=== PATIENT | female | born 1955 | race Caucasian/White ===

== ENCOUNTER → 2020-02-09 10:31 | Outpatient (CLI) | payer OTHER, MEDICAID, SELFPAY ==
[2020-02-09 11:42] LABS: Hematocrit 38.5 % (36-46); Hemoglobin 12.6 g/dL (12.0-16.0); Mean Corpuscular HGB Conc 32.7 % (30-36); Mean Corpuscular Hemoglobin 28.6 PG (26-34); Mean Corpuscular Volume 87.5 fL (80-100); Platelet Count 225 X10^3/uL (150-400); Red Cell Distribution Width 12.7 % (11.6-14.8); White Blood Cell Count 3.8 X10^3/uL (4.5-11.0)
[2020-02-09 12:05] LABS: Alanine Aminotransferase 12 IU/L (<35); Albumin 3.8 g/dL (3.5-5.0); Albumin Globulin Ratio 1.2 (1.0-2.8); Alkaline Phosphatase 56 U/L (38-126); Aspartate Aminotransferase 26 IU/L (14-36); BUN Creatinine Ratio 14.8 (6-22); Bilirubin Total 0.8 mg/dL (0.2-1.3); Blood Urea Nitrogen 13 mg/dL (7-17); Calcium 8.9 mg/dL (8.4-10.2); Carbon Dioxide 33 mmol/L (22-32); Chloride 104 mmol/L (98-107); Cholesterol 264 mg/dL (140-199); Estimated Glomerular Filt Rate > 60.0 mL/min (>60); Globulin 3.1 g/dL (1.7-4.1); Glucose 89 mg/dL (80-110); HDL Cholesterol 62 mg/dL (40-60); HEMOLYSIS < 15 (0-50); LDL Cholesterol Calculated 179 mg/dL (<100); Potassium 4.1 mmol/L (3.4-5.1); Sodium 138 mmol/L (137-145); Total Protein 6.9 g/dL (6.3-8.2); Triglycerides 113 mg/dL (35-150)
== END ==
PROVIDERS: PCP Nurse Practitioner Family; Referring Provider Nurse Practitioner Family; Visit Provider Nurse Practitioner Family
DX: Z00.00 Encounter for general adult medical examination without abnormal findings (principal); Z13.6 Encounter for screening for cardiovascular disorders
CPT/HCPCS: 36415; 80053; 80061; 85027

== ENCOUNTER → 2020-06-14 08:44 | Outpatient (CLI) | payer OTHER, MEDICAID, SELFPAY ==
[2020-06-14 10:45] LABS: Cholesterol 200 mg/dL (140-199); HDL Cholesterol 53 mg/dL (40-60); LDL Cholesterol Calculated 126 mg/dL (<100); Triglycerides 104 mg/dL (35-150)
== END ==
PROVIDERS: PCP Nurse Practitioner Family; Referring Provider Nurse Practitioner Family; Visit Provider Nurse Practitioner Family
DX: E78.2 Mixed hyperlipidemia (principal)
CPT/HCPCS: 36415; 80061

== ENCOUNTER → 2020-06-25 12:27 | Outpatient (CLI) | payer OTHER, MEDICAID, SELFPAY ==
[2020-06-25] MEDS: COVID-19 VACC #1, MRNA(MOD) 100 MCG/0.5 ML VIAL IM (12:35)
== END ==
PROVIDERS: PCP Nurse Practitioner Family; Visit Provider Internal Medicine
DX: Z23 Encounter for immunization (principal)
CPT/HCPCS: 0011A; 91301

== ENCOUNTER → 2020-07-23 10:38 | Outpatient (CLI) | payer OTHER, MEDICAID, SELFPAY ==
[2020-07-23] MEDS: COVID-19 VACC #2, MRNA(MOD) 100 MCG/0.5 ML VIAL IM (10:55)
== END ==
PROVIDERS: PCP Nurse Practitioner Family; Visit Provider Internal Medicine
DX: Z23 Encounter for immunization (principal)
CPT/HCPCS: 0012A; 91301

== ENCOUNTER → 2020-09-18 13:22 | Outpatient (CLI) | payer OTHER, MEDICAID, SELFPAY ==
--- NOTE | 2020-09-18 13:23 | DI.MG.S_ITS ---
BILATERAL DIGITAL SCREENING MAMMOGRAM 3D/2D WITH CAD: 09/18/2020 CLINICAL: Routine screening. Family history of breast cancer. Comparison is made to exams dated: 09/03/2015 mammogram, 09/08/2015 mammogram - [facility], 03/21/2012 mammogram, and 02/23/2010 mammogram - [facility]. The tissue of both breasts is extremely dense, which lowers the sensitivity of mammography. Current study was also evaluated with a Computer Aided Detection (CAD) system. No significant masses, calcifications, or other findings are seen in either breast. There has been no significant interval change. IMPRESSION: NEGATIVE There is no mammographic evidence of malignancy. A 1 year screening mammogram is recommended. This exam was interpreted at Station ID: [id number]. NOTE: For mammograms, a report in lay terms will be sent to the patient. Approximately 15% of breast malignancies will not be visualized mammographically. In the management of a palpable breast mass, a negative mammogram must not discourage biopsy of a clinically suspicious lesion. Electronically Signed By: Santy Brown M.D., jr/rohit:09/20/2020 08:32:34 copy to: NEFTALY JOHN letter sent: Normal Exam ACR BI-RADS Category 1: Negative 3341F
== END ==
PROVIDERS: PCP Nurse Practitioner Family; Referring Provider Nurse Practitioner Family; Visit Provider Nurse Practitioner Family
DX: Z12.31 Encounter for screening mammogram for malignant neoplasm of breast (principal); Z80.3 Family history of malignant neoplasm of breast
CPT/HCPCS: 77063; 77067

== ENCOUNTER → 2020-10-13 08:30 | Outpatient (CLI) | payer OTHER, MEDICAID, SELFPAY ==
[2020-10-13 09:43] LABS: COVID19 -Nasal RAPID Negative (Negative)
== END ==
PROVIDERS: PCP Nurse Practitioner Family; Visit Provider Surgery
DX: Z20.822 Contact with and (suspected) exposure to COVID-19 (principal)
CPT/HCPCS: 87635; C9803

== ENCOUNTER 2020-10-14 11:59 | Day surgery (SDC) | payer OTHER, MEDICAID, SELFPAY ==
[2020-10-14 12:31] VITALS: BP 153/85; PULSE 67; RESP 16; TEMP 36.5; O2SAT 99; BMI 25.8
[2020-10-14] MEDS: LACTATED RINGERS 1,000 ML 200 ML IV (12:48)
--- NOTE | 2020-10-14 12:58 | PM.HP.1 ---
History of Present Illness History of Present Illness Date Patient Seen: 10/14/20 Time Patient Seen: 12:58 Chief complaint: SCREENING COLONOSCOPY Narrative: The patient presents for colorectal sreening. Three prior colonoscopies, most recently 10 years ago and normal. No personal or family history of colon cancer. On further history denies any recent gastrointestinal symptoms. No nausea, vomiting, abdominal pain, loss of appetite, unexplained weight loss, change in bowel habits, diarrhea, constipation, melena, hematochezia, or bright red blood per rectum. Patient History Medical History Anemia (~2002) Asthma Chicken pox Fibroids (~2002) Heavy menstrual period (~2002) Knee pain (~2018) Measles Mixed hyperlipidemia (01/2020) Mumps UTI (urinary tract infection) Vision disorder Surgical History Anesthesia Status post hysterectomy (~2003) Family & Social History Family History Brother Age: 61 Diabetes mellitus Hypertension Mental health problem Morbid obesity Father Diabetes mellitus Heart disease Hypertension High cholesterol Mother Cancer Hypertension Hyperlipidemia Grandfather Cancer Heavy smoker Grandfather Stroke Grandmother No problems noted. Grandmother No problems noted. Social History: household members none Tobacco & Substance use: Smoking Status Never smoker alcohol intake current alcohol intake frequency a few times a month Substance Use Type does not use Meds Home Medications and Allergies Home Medications Medication Instructions Recorded Confirmed Type cholecalciferol (vitamin D3) 125 125 mcg PO DAILY 06/16/20 10/14/20 History mcg (5,000 unit) capsule krill oil 500 mg capsule 500 mg PO DAILY 06/16/20 10/14/20 History mycommunity 2 cap PO DAILY 06/16/20 10/14/20 History plant stanol albina 450 mg capsule 900 mg PO BID 06/16/20 10/14/20 History (Cholest Off Plus) Allergies Allergy/AdvReac Type Severity Reaction Status Date / Time bee venom protein (honey bee) AdvReac Intermediate SWELLING Verified 10/14/20 12:21 Review of Systems Review of Systems ROS: Yes All systems reviewed with the patient and are negative except as otherwise documented Exam Vital Signs (past 8 hours): - 10/14/20 12:31 Temperature 97.7 F Pulse Rate 67 Respiratory Rate 16 Blood Pressure 153/85 H Pulse Oximetry 99 Oxygen Delivery Method Room Air Oxygen Flow Rate 0 Narrative Exam Narrative: GENERAL-well developed adult female, no acute distress HEENT-no scleral icterus, hearing intact NECK-no JVD, trachea midline CVS- regular rate, no peripheral edema RESP-unlabored respiratory effort, no audible wheezing GI-soft, nontender nondistended MSK-no cyanosis or clubbing, extremities without deformity SKIN-warm, dry NEURO-alert and oriented, no focal deficits PYSCH-Appropriate mood and affect Assessment & Plan Assessment & Plan narrative: The patient requires colorectal screening and colonoscopy is recommended. Technical details were discussed. Risks, benefits, alternatives explained. Risks including but not limited to myocardial infarction, aspiration, bleeding, pain, missed lesion, incomplete examination, need for further radiographic studies, colonic perforation, and need for major abdominal surgery were discussed. All questions were answered to their satisfaction, and they are in agreement with this plan.
[2020-10-14] MEDS: fentaNYL 250 MCG/5 ML INJ IV (13:15)
[2020-10-14] MEDS: MIDAZOLAM 5 MG/5 ML VIAL IV (13:17)
--- NOTE | 2020-10-14 13:28 | PM.OP.ENDO ---
Operative Date/Time/Diagnoses Date of procedure: 10/14/20 Time of procedure: 13:28 Pre-op diagnosis: Screening colonoscopy Post-op diagnosis: same Procedure & Clinicians Study performed: Colonoscopy Same procedure as scheduled: Yes Indications: Screening Surgeon: Rohit Monroy Procedure Notes Procedure in detail: Medications: Conscious sedation using 8mg IV midazolam and 250mcg IV of fentanyl The history and physical was performed/updated and the patient is ASA class is 2. The procedure was discussed in detail with the patient. Potential risks complications including infection, bleeding, missed diagnosis, perforation, need for surgery, and were explained. Their questions were answered and informed consent was obtained. Patient was brought to the procedure room and placed standard monitoring equipment. The patient's vital signs were monitored continuously throughout the entire procedure. Prior to starting time-out was performed. The patient was placed in the left lateral recumbent position. Procedural sedation was administered. Examination began with a thorough inspection of the perianal area there was no evidence of fissures, fistulae, external hemorrhoids or cutaneous malignancy. The colonoscopy scope was then placed into the anal canal and was advanced to the cecum, which was identified by the ileocecal valve, the appendiceal orifice and the confluence of the taenia. The scope was then slowly withdrawn examining colon thoroughly in all directions, irrigating it of any residual stool. FINDINGS 1. Normal healthy colon 2. No masses or polyps 3. Sigmoid diverticulosis 4. Grade 1 internal hemorrhoids The patient tolerated the procedure well. They will be discharged once criteria are met. The prep was of good/excellent quality. The withdrawl time was 6 minutes. The sedation time was 23 minutes. Post-procedure Recommendations: Colonscopy in 10 years Disposition: same day surgery
[2020-10-14 13:37] VITALS: BP 113/68; PULSE 61; RESP 18; O2SAT 94
[2020-10-14 13:42] VITALS: BP 115/73; PULSE 60; RESP 16; TEMP 36.9
[2020-10-14 13:51] VITALS: BP 114/68; PULSE 70; RESP 16; TEMP 36.8; O2SAT 98
== END 2020-10-14 14:02 | disposition home or self-care (01) ==
PROVIDERS: PCP Nurse Practitioner Family; Referring Provider Surgery; Visit Provider Surgery
PROC: 0DJD8ZZ Inspection of Lower Intestinal Tract, Via Natural or Artificial Opening Endoscopic (ICD-10-PCS; CPT 45378; principal; 2020-10-14 13:00)
DX: Z12.11 Encounter for screening for malignant neoplasm of colon (principal); K57.30 Diverticulosis of large intestine without perforation or abscess without bleeding; K64.0 First degree hemorrhoids
CPT/HCPCS: 45378; 99152; J2250; J3010

== ENCOUNTER → 2021-09-21 10:54 | Outpatient (CLI) | payer MEDICARE, OTHER, SELFPAY ==
--- NOTE | 2021-09-21 | DI.MG.S_ITS ---
BILATERAL DIGITAL SCREENING MAMMOGRAM 3D/2D WITH CAD: 09/21/2021 CLINICAL: Routine screening. Family history of breast cancer. Comparison is made to exams dated: 09/18/2020 mammogram, 09/08/2015 mammogram, 09/03/2015 mammogram - [facility], and 03/21/2012 mammogram - [facility]. The tissue of both breasts is extremely dense, which lowers the sensitivity of mammography. Current study was also evaluated with a Computer Aided Detection (CAD) system. No significant masses, calcifications, or other findings are seen in either breast. There has been no significant interval change. IMPRESSION: NEGATIVE There is no mammographic evidence of malignancy. A 1 year screening mammogram is recommended. This exam was interpreted at Station ID: [id number]. NOTE: For mammograms, a report in lay terms will be sent to the patient. Approximately 15% of breast malignancies will not be visualized mammographically. In the management of a palpable breast mass, a negative mammogram must not discourage biopsy of a clinically suspicious lesion. Electronically Signed By: Andrade Rush acr/penrad:09/21/2021 11:19:41 copy to: NEFTALY JOHN letter sent: Normal Exam ACR BI-RADS Category 1: Negative 3341F
== END ==
PROVIDERS: PCP Nurse Practitioner Family; Referring Provider Nurse Practitioner Family; Visit Provider Nurse Practitioner Family
DX: Z12.31 Encounter for screening mammogram for malignant neoplasm of breast (principal); Z80.3 Family history of malignant neoplasm of breast
CPT/HCPCS: 77063; 77067

== ENCOUNTER → 2022-05-03 15:22 | Outpatient (CLI) | payer MEDICARE, OTHER, SELFPAY ==
[2022-05-03 15:47] LABS: Hematocrit 33.1 % (36-46); Hemoglobin 10.6 g/dL (12.0-16.0); Mean Corpuscular HGB Conc 31.9 % (30-36); Mean Corpuscular Hemoglobin 26.5 PG (26-34); Mean Corpuscular Volume 82.9 fL (80-100); Platelet Count 231 X10^3/uL (150-400)
[2022-05-03 16:27] LABS: Alanine Aminotransferase 20 IU/L (<35); Albumin 3.9 g/dL (3.5-5.0); Albumin Globulin Ratio 1.3 (1.0-2.8); Alkaline Phosphatase 56 U/L (38-126); Aspartate Aminotransferase 35 IU/L (14-36); BUN Creatinine Ratio 20.5 (6-22); Bilirubin Total 0.6 mg/dL (0.2-1.3); Blood Urea Nitrogen 17 mg/dL (7-17); Calcium 8.6 mg/dL (8.4-10.2); Carbon Dioxide 29 mmol/L (22-32); Chloride 104 mmol/L (98-107); Estimated Glomerular Filt Rate > 60 mL/min (>60); Globulin 2.9 g/dL (1.7-4.1); Glucose 116 mg/dL (80-110); HEMOLYSIS < 15 (0-50); Magnesium 2.1 mg/dL (1.6-2.3); Potassium 3.9 mmol/L (3.4-5.1); Sodium 142 mmol/L (137-145); Total Protein 6.8 g/dL (6.3-8.2)
[2022-05-03 16:53] LABS: TSH w/ Reflex to FT4 1.34 uIU/mL (0.47-4.68)
== END ==
PROVIDERS: PCP Nurse Practitioner Family; Referring Provider Nurse Practitioner Family; Visit Provider Nurse Practitioner Family
DX: R07.9 Chest pain, unspecified (principal); D64.9 Anemia, unspecified; M62.81 Muscle weakness (generalized); R03.0 Elevated blood-pressure reading, without diagnosis of hypertension; Z13.1 Encounter for screening for diabetes mellitus
CPT/HCPCS: 36415; 80053; 83735; 84443; 85027

== ENCOUNTER → 2022-05-08 16:53 | Outpatient (CLI) | payer MEDICARE, OTHER, SELFPAY ==
[2022-05-08 17:38] LABS: Hemoglobin A1C% w Est Avg Glu 5.8 % (4.0-6.0)
[2022-05-08 17:56] LABS: HEMOLYSIS 16 (0-50); Iron 30 ug/dL (37-170)
[2022-05-08 18:01] LABS: Cholesterol 231 mg/dL (140-199); HDL Cholesterol 71 mg/dL (40-60); LDL Cholesterol Calculated 134 mg/dL (<100); Triglycerides 130 mg/dL (35-150)
[2022-05-08 18:07] LABS: Percent Iron Saturation 7 % (15-50); Total Iron Binding Capacity 423 ug/dL (265-497); Transferrin 312 mg/dL (206-381)
[2022-05-08 18:33] LABS: Ferritin 7 ng/mL (11-264)
== END ==
PROVIDERS: PCP Family Medicine; Referring Provider Family Medicine; Visit Provider Family Medicine
DX: R03.0 Elevated blood-pressure reading, without diagnosis of hypertension (principal); D64.9 Anemia, unspecified; E78.2 Mixed hyperlipidemia; Z13.1 Encounter for screening for diabetes mellitus
CPT/HCPCS: 36415; 80061; 82728; 83036; 83540; 83550

== ENCOUNTER → 2022-05-29 13:47 | Outpatient (CLI) | payer MEDICARE, OTHER, SELFPAY ==
--- NOTE | 2022-05-29 13:48 | DI.ECHO.S_ITS ---
[facility] [address] [place]. [address] [facility]---------+ [facility] +---------+ : : [id number] : : : : [place], [place] : : : : [id number] : : : : Phone: [phone]+ Echocardiogram Report + + :Name: KYLAH LOBO Study Date: 05/29/2022 Height: 65 in : :[facility] ReadingLocation: Weight: 175 lb : : Gender: Female BSA: 1.9 m2 : :: 1955 Age: 67 yrs BP: 156/86 mmHg: :Reason For Study: Chest Pain : :Ordering Physician: JENSEN, : :DARIEN Performed By: Magdalene Ryan : :Referring: DARIEN STYLES : + + Interpretation Summary Mild concentric left ventricular hypertrophy with ejection fraction 60-65%. Diastolic parameters suggest a relaxation abnormality of the left ventricle, consistent with probable normal filling pressures. Moderately dilated left atrium. No valvular abnormality. Procedure: A two-dimensional transthoracic echocardiogram with color flow and Doppler was performed. The study quality was technically good. There is no prior echocardiogram noted for this patient. The patient was in sinus rhythm with heart rates between 70-78 bpm during the exam. Left Ventricle: The left ventricle is normal in size. There is mild concentric left ventricular hypertrophy. The ejection fraction is estimated to be 60-65%. There are no focal wall motion abnormalities. Diastolic parameters suggest a relaxation abnormality of the left ventricle, consistent with probable normal filling pressures. Right Ventricle: The right ventricle is normal in size, thickness and function. Atria: The left atrium is moderately dilated. Right atrial size is normal. There is no Doppler evidence for an interatrial shunt. Mitral Valve: The mitral valve is normal in structure but abnormal in function. There is trace mitral regurgitation. Aortic Valve: The aortic valve is normal in structure and function. There is trace aortic regurgitation. Tricuspid Valve: The tricuspid valve is normal in structure and function. There is a trace or physiologic amount of tricuspid regurgitation. The right ventricular systolic pressure is estimated to be at least 18.5 mmHg based on an estimated right atrial pressure of 3 mm Hg. Pulmonic Valve: The pulmonic valve leaflets are thin and pliable; valve motion is normal. There is no pulmonic valvular regurgitation. Great Vessels: The aortic root is normal size. The ascending aorta is normal in size. The pulmonary is not well visualized. The IVC is of normal diameter and collapses greater than 50% with a sniff. This suggests a low right atrial pressure of 3 mm Hg. Pericardium/ Pleura There is a trivial pericardial effusion noted. There is no pleural effusion. MMode/2D Measurements & Calculations LVIDd: 4.6 cm LVOT diam: 2.1 cm LVIDs: 2.9 cm Ao root diam: 3.3 cm FS: 36.3 % asc Aorta Diam: 3.4 cm EPSS: 0.34 cm IVSd: 1.0 cm LVPWd: 1.2 cm LV suarez. diameter/BSA (cm/m^2): 2.5 LV sys. diameter/BSA (cm/m^2): 1.6 LA A2 area: 21.5 cm2 RA long axis: 5.1 cm LA A4 area: 20.9 cm2 RA area: 17.7 cm2 LA length (vol): 5.0 cm RA vol: 52.2 ml LA vol: 76.8 ml RA : 27.9 ml/m2 LA vol index: 41.1 ml/m2 IVC diam: 1.8 cm RVD1 (basal): 3.8 cm TAPSE: 2.2 cm Doppler Measurements & Calculations Ao V2 max: 134.5 cm/sec LVOT Max Geronimo: 94.3 cm/sec Ao V2 mean: 97.1 cm/sec LV V1 max P.6 mmHg Ao max P.2 mmHg LV V1 VTI: 20.9 cm Ao mean P.2 mmHg GRETCHEN(I,D): 2.8 cm2 Ao V2 VTI: 26.0 cm GRETCHEN(V,D): 2.4 cm2 sev ratio: 0.80 GRETCHEN indexed to BSA (cm^2/m^2): 1.5 MV E max geronimo: 44.2 cm/sec TR max geronimo: 183.8 cm/sec MV A max geronimo: 76.7 cm/sec TR max P.5 mmHg MV E/A: 0.58 PA V2 max: 69.1 cm/sec Med Peak E' Geronimo: 4.1 cm/sec PA V2 mean: 52.7 cm/sec E/E' med: 10.8 PA mean P.2 mmHg Lat Peak E' Geronimo: 3.2 cm/sec E/E' lat: 13.7 E/e' average: 12.2 MV dec time: 0.30 sec MVA(VTI): 3.8 cm2 MV V2 mean: 49.2 cm/sec SV(LVOT): 72.2 ml MV mean P.2 mmHg MV V2 VTI: 18.9 cm Electronically signed by: Hanna Moreland on Reading Physician:05/29/2022 04:21 PM
== END ==
PROVIDERS: PCP Family Medicine; Referring Provider Family Medicine; Visit Provider Family Medicine
DX: R07.9 Chest pain, unspecified (principal)
CPT/HCPCS: 93306

== ENCOUNTER → 2022-06-06 07:44 | Outpatient (CLI) | payer MEDICARE, OTHER, SELFPAY ==
--- NOTE | 2022-06-12 09:42 | DI.NM.S_ITS ---
DATE OF SERVICE: PROCEDURE: Exercise stress test. INDICATIONS: Chest pain with underlying diabetes mellitus, hypertension. CARDIAC STRESS: Patient underwent exercise stress test under the supervision of an attending staff. The patient walked on Narendra protocol for 9 minutes and achieved 112% of target heart rate. Maximum heart rate was 172 beats per minute. Baseline blood pressure 140/88 mmHg. Peak blood pressure 190/102 mmHg. Achieved 10.1 METS of workload and RUSSELL -42%. Baseline rhythm was sinus with inferolateral T-wave inversion. During stress, no convincing ischemic changes seen. No obvious AFib or ventricular tachycardia. At peak exercise, the patient has short run of atrial tachycardia. [place] fatigued. No chest pain or ischemic symptoms. No claudication. CONCLUSION: Exercise stress test is negative for inducible ischemia. Hypertensive blood pressure response. Peak blood pressure 190/102 mmHg. Good exercise tolerance. Functional aerobic impairment -42% and 10.1 metabolic equivalents of workload. Brief run of atrial tachycardia at peak exercise. Overall, low-risk exercise stress test. Estella Rodriguez - JJ/arlette/constantine doc#: [id number]/job#: [id number] dd: 06/06/2022 17:26:00 dt: 06/06/2022 23:51:00 DICTATING /COPIES TO: Noman Fox MD COPIES MNE: NITZA;
== END ==
PROVIDERS: PCP Family Medicine; Referring Provider Family Medicine; Visit Provider Family Medicine
DX: R07.9 Chest pain, unspecified (principal); E11.9 Type 2 diabetes mellitus without complications; I10 Essential (primary) hypertension
CPT/HCPCS: 93017

== ENCOUNTER → 2022-10-05 10:58 | Outpatient (CLI) | payer MEDICARE, OTHER, SELFPAY ==
--- NOTE | 2022-10-05 11:00 | DI.MG.S_ITS ---
BILATERAL DIGITAL SCREENING MAMMOGRAM 3D/2D WITH CAD: 10/05/2022 CLINICAL: Routine screening. Family history of breast cancer. Comparison is made to exams dated: 09/21/2021 mammogram, 09/18/2020 mammogram, and 09/03/2015 mammogram - [facility]. Both breasts are extremely dense, which lowers the sensitivity of mammography (category d />75% glandular tissue). Current study was also evaluated with a Computer Aided Detection (CAD) system. No significant masses, calcifications, or other findings are seen in either breast. There has been no significant interval change. IMPRESSION: NEGATIVE There is no mammographic evidence of malignancy. A 1 year screening mammogram is recommended. Based on the Tyrer Cuzick model (a risk assessment model) the patient's lifetime risk is 17.9% and her 10 year risk is 9.3%. According to the ACR, ACS, and NCCN guidelines, an annual breast MRI exam along with mammogram is recommended if the patient's lifetime risk is 20% or greater. This exam was interpreted at Station ID: [id number]. NOTE: For mammograms, a report in lay terms will be sent to the patient. Approximately 15% of breast malignancies will not be visualized mammographically. In the management of a palpable breast mass, a negative mammogram must not discourage biopsy of a clinically suspicious lesion. Electronically Signed By: Andrade buchanan/rohit:10/05/2022 14:32:18 copy to: NEFTALY JOHN letter sent: Normal Exam ACR BI-RADS Category 1: Negative 3341F
== END ==
PROVIDERS: PCP Family Medicine; Referring Provider Family Medicine; Visit Provider Family Medicine
DX: Z12.31 Encounter for screening mammogram for malignant neoplasm of breast (principal); Z80.3 Family history of malignant neoplasm of breast
CPT/HCPCS: 77063; 77067

== ENCOUNTER → 2022-12-21 09:09 | Outpatient (CLI) | payer MEDICARE, OTHER, SELFPAY ==
[2022-12-21 09:48] LABS: BUN Creatinine Ratio 18.9 (6-22); Blood Urea Nitrogen 14 mg/dL (7-17); Calcium 8.9 mg/dL (8.4-10.2); Carbon Dioxide 27 mmol/L (22-32); Chloride 103 mmol/L (98-107); Estimated Glomerular Filt Rate > 60 mL/min (>60); Glucose 89 mg/dL (80-110); HEMOLYSIS < 15 (0-50); Potassium 3.9 mmol/L (3.4-5.1); Sodium 136 mmol/L (137-145)
[2022-12-21 09:50] LABS: Add Manual Diff / Slide Review NO; Basophils Absolute Auto 0 /uL (0-100); Eosinophils Absolute Auto 100 /uL (0-450); Eosinophils Percent Auto 4.4 % (2-4); Hematocrit 37.5 % (36-46); Hemoglobin 12.6 g/dL (12.0-16.0); Lymphocytes Absolute Auto 1100 /uL (1100-4500); Lymphocytes Percent Auto 38.6 % (25-40); Mean Corpuscular HGB Conc 33.7 % (30-36); Mean Corpuscular Hemoglobin 29.2 PG (26-34); Mean Corpuscular Volume 86.6 fL (80-100); Monocytes Absolute Auto 400 /uL (0-900); Monocytes Percent Auto 12.5 % (3-14); Neutrophils Absolute Auto 1200 /uL (1500-7000); Neutrophils Percent Auto 43.5 % (50-75); Platelet Count 185 X10^3/uL (150-400); Red Blood Cell Count 4.33 X10^6/uL (4.0-5.2); White Blood Cell Count 2.9 X10^3/uL (4.5-11.0)
[2022-12-21 09:52] LABS: Hemoglobin A1C% w Est Avg Glu 5.3 % (4.0-6.0)
[2022-12-21 10:24] LABS: Ferritin 35 ng/mL (11-264)
== END ==
PROVIDERS: PCP Family Medicine; Referring Provider Family Medicine; Visit Provider Family Medicine
DX: D64.9 Anemia, unspecified (principal); R73.01 Impaired fasting glucose; I10 Essential (primary) hypertension
CPT/HCPCS: 36415; 80048; 82728; 83036; 85025

== ENCOUNTER → 2023-04-26 12:36 | Outpatient (CLI) | payer MEDICARE, OTHER, SELFPAY ==
[2023-04-26 13:22] LABS: Cholesterol 220 mg/dL (140-199); HDL Cholesterol 51 mg/dL (40-60); LDL Cholesterol Calculated 150 mg/dL (<100); Triglycerides 94 mg/dL (35-150)
== END ==
PROVIDERS: PCP Family Medicine; Referring Provider Family Medicine; Visit Provider Family Medicine
DX: E78.2 Mixed hyperlipidemia (principal); R79.0 Abnormal level of blood mineral
CPT/HCPCS: 36415; 80061

== ENCOUNTER 2023-09-08 11:27 | Emergency (ER) | payer MEDICARE, OTHER, SELFPAY ==
[2023-09-08] VITALS (12 sets, daily range): BP systolic 147–162; BP diastolic 73–90; PULSE 59–82; RESP 13–26; O2SAT 96–99; BMI 29.9
--- NOTE | 2023-09-08 11:48 | ED.GENADULT ---
HPI - General Adult <Eric Burgess MD - Last Filed: 09/10/23 07:17> General Chief complaint: Hypertension Stated complaint: high bp Time Seen by Provider: 09/08/23 11:36 Source: patient Mode of arrival: Ambulatory History of Present Illness HPI narrative: Patient brought self here from home. Complains of elevated blood pressure dizziness/vision changes. Patient seen by primary care 3 months ago for wellness check. She has been on losartan 25 mg daily for over a year. She has on a statin medication as well.. Patient has been doing well with her health. She walks about 4 miles a day. No exertional intolerance. No dyspnea. She went to bed last night without any complaints. She takes her blood pressure about once a week. Usually systolic is 120 or it might be 130. This past Sunday the systolic was 120. This morning when she awoke she went and walked her dog as usual and had no cardiovascular neuro complaints. No chest pain no dyspnea no palpitations no headache no dizziness no vision changes. When she returned home she did have some dizziness, when she looked across the room it felt like she was in a cruise ship looking out a window in the environment was shifting. This lasted less than a minute she states. That has resolved. She took her blood pressure in the systolic was 170. This was at 10:00 a.m.. It is now 12:00 p.m.. Triage blood pressure 160/90. Blow or notes from primary care back in May of this year with Dr. Jules, pcp. Today she denies any chest pain palpitations headache dyspnea back pain or abdominal pain. No numbness tingling or weakness. Patient did not test if it was 1 eye or both eyes that was causing visual disturbance Echocardiogram report below from May 2023 Subjective: Patient is here for her annual wellness visit. She feels she is at her normal level of health. She exercises regularly. She does not smoke. No significant alcohol use. She is up-to-date on her immunizations. She has had hysterectomy and no longer requires Pap smears. Colonoscopies up-to-date. So as her DEXA scan. Her end of life planning, advanced care planning is completed with her family. On a separate issue during this visit: Patient with a history of hypertension, iron-deficiency anemia, hyperlipidemia. Her blood pressure at home is well-controlled. She walks 4 miles a day without difficulty. No decrease in exercise tolerance. In the past she has taken rfeg-loy-erazpjj cholesterol medications but recently has not been taking those. She also we would like to stop her iron. [address] [address] Echocardiography Report Addendum Patient: Kylah Lobo MR#: [id number] : 1955 Acct:[id number] Age/Sex: 67 / F Date of Service: 05/29/22 Loc: ECHO Accession Number: [id number] Procedure: EC echo doppler complete Ordering Provider: Darien Scales ADDENDUM [place] +---------+ [facility] +---------+ : : [address] [place] [address]. : : : : [place], [place] : : : : [address] : : : : Phone: [phone]+ Echocardiogram Report + + :Name: KYLAH LOBO Study Date: 05/29/2022 Height: 65 in : :[facility] ReadingLocation: Weight: 175 lb : : Gender: Female BSA: 1.9 m2 : :: 1955 Age: 67 yrs BP: 156/86 mmHg: :Reason For Study: Chest Pain : :Ordering Physician: JENSEN, : :DARIEN Performed By: Magdalene Ryan : :Referring: DARIEN SCALES : + + Interpretation Summary Mild concentric left ventricular hypertrophy with ejection fraction 60-65%. Diastolic parameters suggest a relaxation abnormality of the left ventricle, consistent with probable normal filling pressures. Moderately dilated left atrium. No valvular abnormality. Procedure: A two-dimensional transthoracic echocardiogram with color flow and Doppler was performed. The study quality was technically good. There is no prior echocardiogram noted for this patient. The patient was in sinus rhythm with heart rates between 70-78 bpm during the exam. Left Ventricle: The left ventricle is normal in size. There is mild concentric left ventricular hypertrophy. The ejection fraction is estimated to be 60-65%. There are no focal wall motion abnormalities. Diastolic parameters suggest a relaxation abnormality of the left ventricle, consistent with probable normal filling pressures. Right Ventricle: The right ventricle is normal in size, thickness and function. Atria: The left atrium is moderately dilated. Right atrial size is normal. There is no Doppler evidence for an interatrial shunt. Mitral Valve: The mitral valve is normal in structure but abnormal in function. There is trace mitral regurgitation. Aortic Valve: The aortic valve is normal in structure and function. There is trace aortic regurgitation. Tricuspid Valve: The tricuspid valve is normal in structure and function. There is a trace or physiologic amount of tricuspid regurgitation. The right ventricular systolic pressure is estimated to be at least 18.5 mmHg based on an estimated right atrial pressure of 3 mm Hg. Pulmonic Valve: The pulmonic valve leaflets are thin and pliable; valve motion is normal. There is no pulmonic valvular regurgitation. Great Vessels: The aortic root is normal size. The ascending aorta is normal in size. The pulmonary is not well visualized. The IVC is of normal diameter and collapses greater than 50% with a sniff. This suggests a low right atrial pressure of 3 mm Hg. Pericardium/ Pleura There is a trivial pericardial effusion noted. There is no pleural effusion. MMode/2D Measurements & Calculations LVIDd: 4.6 cm LVOT diam: 2.1 cm LVIDs: 2.9 cm Ao root diam: 3.3 cm FS: 36.3 % asc Aorta Diam: 3.4 cm EPSS: 0.34 cm IVSd: 1.0 cm LVPWd: 1.2 cm LV suarez. diameter/BSA (cm/m^2): 2.5 LV sys. diameter/BSA (cm/m^2): 1.6 LA A2 area: 21.5 cm2 RA long axis: 5.1 cm LA A4 area: 20.9 cm2 RA area: 17.7 cm2 LA length (vol): 5.0 cm RA vol: 52.2 ml LA vol: 76.8 ml RA : 27.9 ml/m2 LA vol index: 41.1 ml/m2 IVC diam: 1.8 cm RVD1 (basal): 3.8 cm TAPSE: 2.2 cm Doppler Measurements & Calculations Ao V2 max: 134.5 cm/sec LVOT Max Geronimo: 94.3 cm/sec Ao V2 mean: 97.1 cm/sec LV V1 max P.6 mmHg Ao max P.2 mmHg LV V1 VTI: 20.9 cm Ao mean P.2 mmHg GRETCHEN(I,D): 2.8 cm2 Ao V2 VTI: 26.0 cm GRETCHEN(V,D): 2.4 cm2 sev ratio: 0.80 GRETCHEN indexed to BSA (cm^2/m^2): 1.5 MV E max geronimo: 44.2 cm/sec TR max geronimo: 183.8 cm/sec MV A max geronimo: 76.7 cm/sec TR max P.5 mmHg MV E/A: 0.58 PA V2 max: 69.1 cm/sec Med Peak E' Geronimo: 4.1 cm/sec PA V2 mean: 52.7 cm/sec E/E' med: 10.8 PA mean P.2 mmHg Lat Peak E' Geronimo: 3.2 cm/sec E/E' lat: 13.7 E/e' average: 12.2 MV dec time: 0.30 sec MVA(VTI): 3.8 cm2 MV V2 mean: 49.2 cm/sec SV(LVOT): 72.2 ml MV mean P.2 mmHg MV V2 VTI: 18.9 cm Electronically signed by: Hanna Moreland on Reading Physician:05/29/2022 04:21 PM Addendum Dictated By: Hanna Camara MD Addendum Signed By: Addendum Cosigned By: DD/ /15/1357 TD/TT: 05/29/2209/15/1357 [facility] [address] [address] [place] +---------+ [facility] +---------+ : : [address] : : : : [place] : : : : [address] : : : : Phone: [phone]---------+ Echocardiogram Report + + :Name: KYLAH LOBO Study Date: 05/29/2022 Height: 65 in : [id number] ReadingLocation: Weight: 175 lb : : Gender: Female BSA: 1.9 m2 : :: 1955 Age: 67 yrs BP: 156/86 mmHg: :Reason For Study: Chest Pain : :Ordering Physician: JENSEN, : :DARIEN Performed By: Magdalene Ryan : :Referring: DARIEN SCALES : + + Interpretation Summary Mild concentric left ventricular hypertrophy with ejection fraction 60-65%. Diastolic parameters suggest a relaxation abnormality of the left ventricle, consistent with probable normal filling pressures. Moderately dilated left atrium. No valvular abnormality. Procedure: A two-dimensional transthoracic echocardiogram with color flow and Doppler was performed. The study quality was technically good. There is no prior echocardiogram noted for this patient. The patient was in sinus rhythm with heart rates between 70-78 bpm during the exam. Left Ventricle: The left ventricle is normal in size. There is mild concentric left ventricular hypertrophy. The ejection fraction is estimated to be 60-65%. There are no focal wall motion abnormalities. Diastolic parameters suggest a relaxation abnormality of the left ventricle, consistent with probable normal filling pressures. Right Ventricle: The right ventricle is normal in size, thickness and function. Atria: The left atrium is moderately dilated. Right atrial size is normal. There is no Doppler evidence for an interatrial shunt. Mitral Valve: The mitral valve is normal in structure but abnormal in function. There is trace mitral regurgitation. Aortic Valve: The aortic valve is normal in structure and function. There is trace aortic regurgitation. Tricuspid Valve: The tricuspid valve is normal in structure and function. There is a trace or physiologic amount of tricuspid regurgitation. The right ventricular systolic pressure is estimated to be at least 18.5 mmHg based on an estimated right atrial pressure of 3 mm Hg. Pulmonic Valve: The pulmonic valve leaflets are thin and pliable; valve motion is normal. There is no pulmonic valvular regurgitation. Great Vessels: The aortic root is normal size. The ascending aorta is normal in size. The pulmonary is not well visualized. The IVC is of normal diameter and collapses greater than 50% with a sniff. This suggests a low right atrial pressure of 3 mm Hg. Pericardium/ Pleura There is a trivial pericardial effusion noted. There is no pleural effusion. MMode/2D Measurements & Calculations LVIDd: 4.6 cm LVOT diam: 2.1 cm LVIDs: 2.9 cm Ao root diam: 3.3 cm FS: 36.3 % asc Aorta Diam: 3.4 cm EPSS: 0.34 cm IVSd: 1.0 cm LVPWd: 1.2 cm LV suarez. diameter/BSA (cm/m^2): 2.5 LV sys. diameter/BSA (cm/m^2): 1.6 LA A2 area: 21.5 cm2 RA long axis: 5.1 cm LA A4 area: 20.9 cm2 RA area: 17.7 cm2 LA length (vol): 5.0 cm RA vol: 52.2 ml LA vol: 76.8 ml RA : 27.9 ml/m2 LA vol index: 41.1 ml/m2 IVC diam: 1.8 cm RVD1 (basal): 3.8 cm TAPSE: 2.2 cm Doppler Measurements & Calculations Ao V2 max: 134.5 cm/sec LVOT Max Geronimo: 94.3 cm/sec Ao V2 mean: 97.1 cm/sec LV V1 max P.6 mmHg Ao max P.2 mmHg LV V1 VTI: 20.9 cm Ao mean P.2 mmHg GRETCHEN(I,D): 2.8 cm2 Ao V2 VTI: 26.0 cm GRETCHEN(V,D): 2.4 cm2 sev ratio: 0.80 GRETCHEN indexed to BSA (cm^2/m^2): 1.5 MV E max geronimo: 44.2 cm/sec TR max geronimo: 183.8 cm/sec MV A max geronimo: 76.7 cm/sec TR max P.5 mmHg MV E/A: 0.58 PA V2 max: 69.1 cm/sec Med Peak E' Geronimo: 4.1 cm/sec PA V2 mean: 52.7 cm/sec E/E' med: 10.8 PA mean P.2 mmHg Lat Peak E' Geronimo: 3.2 cm/sec E/E' lat: 13.7 E/e' average: 12.2 MV dec time: 0.30 sec MVA(VTI): 3.8 cm2 MV V2 mean: 49.2 cm/sec SV(LVOT): 72.2 ml MV mean P.2 mmHg MV V2 VTI: 18.9 cm Electronically signed by: Hanna Moreland on Reading Physician:05/29/2022 04:21 PM Related Data Home Medications Medication Instructions Recorded Confirmed cholecalciferol (vitamin D3) 125 125 mcg PO DAILY 06/16/20 06/20/23 mcg (5,000 unit) capsule Previous Rx's Medication Instructions Recorded valacyclovir 1 gram tablet 1,000 mg PO BID PRN cold sores #4 12/20/22 (Valtrex) tabs losartan 25 mg tablet 25 mg PO DAILY blood pressure #90 06/20/23 tabs rosuvastatin 10 mg tablet (Crestor) 10 mg PO DAILY cholesterol #90 tabs 06/20/23 aspirin 81 mg chewable tablet 81 mg PO DAILY #14 tabs 09/08/23 Allergies Allergy/AdvReac Type Severity Reaction Status Date / Time bee venom protein (honey bee) AdvReac Intermediate SWELLING Verified 06/20/23 08:25 Review of Systems <Eric Burgess MD - Last Filed: 09/10/23 07:17> Review of Systems Narrative: GENERAL: negative chills, fatigue, malaise, fever, sweats. HEENT: negative sinus pain, ear pain, sore throat RESPIRATORY: negative dyspnea, cough CARDIOVASCULAR: negative chest pain, palpitations GASTROINTESTINAL: negative nausea, vomiting, abdominal pain : negative dysuria, frequency, hematuria MUSCULOSKELETAL: negative muscle or bony pain SKIN: negative rash, skin lesions NEUROLOGIC: negative weakness, numbness, positive dizziness ROS Unobtainable: All systems reviewed & are unremarkable except as noted in HPI and below Patient History <Eric Burgess MD - Last Filed: 09/10/23 07:17> Medical History Encounter for subsequent annual wellness visit (AWV) in Medicare patient Low ferritin IFG (impaired fasting glucose) Has end of life care plan Low hemoglobin and low hematocrit Benign essential HTN UTI (urinary tract infection) Asthma Mixed hyperlipidemia (01/2020) Vision disorder Knee pain (~2018) Mumps Measles Chicken pox Anemia (~2002) Heavy menstrual period (~2002) Fibroids (~2002) Surgical History Anesthesia Status post hysterectomy (~2003) Family History Brother Age: 64 Diabetes mellitus Hypertension Mental health problem Morbid obesity Father Diabetes mellitus Heart disease Hypertension High cholesterol Mother Cancer Hypertension Hyperlipidemia Grandfather Cancer Heavy smoker Grandfather Stroke Grandmother No problems noted. Grandmother No problems noted. Social History household members: none Smoking Status: Never smoker second hand exposure: No alcohol intake: current substance use type: does not use Smoking Status: Never smoker alcohol intake frequency: a few times a month Substance Use Type: does not use Exam <Eric Burgess MD - Last Filed: 09/10/23 07:17> Narrative Exam Narrative: GENERAL: in no distress, not toxic not dyspneic HEAD: Normocephalic. EYES: Pupils equal round ENT: Mucous membranes moist. NECK: Trachea midline. CARDIOVASCULAR: Regular rate and rhythm RESPIRATORY: Clear to auscultation. Breath sounds equal bilaterally. No wheezes, rales, or rhonchi. GASTROINTESTINAL: Abdomen soft, non-tender EXTREMITIES: No gross deformities. BACK: No flank tenderness. NEURO: AOx4. Clear speech no facial droop light touch intact bilateral face hands and legs. Strong equal kit assembler. Negative pronator drift. Fast exam is negative SKIN: Warm and dry PSYCH: Not anxious, is cooperative Initial Vital Signs Initial Vital Signs: Vital Signs Pulse Rate 82 09/08/23 11:30 Respiratory Rate 16 09/08/23 11:30 Blood Pressure 160/90 H 09/08/23 11:30 Pulse Oximetry 97 09/08/23 11:30 Oxygen Delivery Method Room Air 09/08/23 11:30 <Jeimy Mccormick MD - Last Filed: 09/11/23 07:15> Initial Vital Signs Initial Vital Signs: Vital Signs Pulse Rate 82 09/08/23 11:30 Respiratory Rate 16 09/08/23 11:30 Blood Pressure 160/90 H 09/08/23 11:30 Pulse Oximetry 97 09/08/23 11:30 Oxygen Delivery Method Room Air 09/08/23 11:30 Scores <Eric Burgess MD - Last Filed: 09/10/23 07:17> NIH Stroke Scale Level of Conciousness: Alert, keenly responsive Ask month/age: Answers both questions correctly. Open/close eyes, close hand: Performs both tasks correctly Best gaze horizontal: Normal Visual garcia: No visual loss Facial palsy: Normal symetrical movement Left arm drift: No drift for full 10 sec Right arm drift: No drift for full 10 sec Left leg drift: No drift for full 5 sec Right leg drift: No drift for full 5 sec Limb ataxia: Absent Sensory on face/arms/legs: Normal, no sensory loss Best language: No aphasia, normal Dysarthria: Normal Extinction or inattention: No abnormality Total NIH Stroke scale score: 0 <Jeimy Mccormick MD - Last Filed: 09/11/23 07:15> NIH Stroke Scale Total NIH Stroke scale score: 0 Course <Eric Burgess MD - Last Filed: 09/10/23 07:17> Orders Ordered: Discontinued Medications Aspirin (Aspirin Ec 81 Mg Tablet) 81 mg PO NOW ONE Stop: 09/08/23 14:51 Last Admin: 09/08/23 15:55 Dose: Not Given Documented By: SB Sodium Chloride (Normal Saline 0.9%) 500 mls @ 1,000 mls/hr IV BOLUS ONE Stop: 09/08/23 12:39 Last Infusion: 09/08/23 12:58 Dose: Infused Documented By: Admin: 09/08/23 12:25 Dose: 1,000 mls/hr Documented By: RL Losartan Potassium (Losartan 25 Mg Tablet) 25 mg PO NOW ONE Stop: 09/08/23 12:41 Last Admin: 09/08/23 12:56 Dose: 25 mg Documented By: AMISHA Vital Signs Vital signs: Vital Signs - 8 hr 09/08/23 11:30 09/08/23 12:17 09/08/23 12:27 Pulse Rate 82 68 66 Respiratory Rate 16 16 Blood Pressure 160/90 H Pulse Oximetry 97 97 97 Oxygen Delivery Method Room Air 09/08/23 12:27 09/08/23 12:30 09/08/23 12:30 Pulse Rate 69 Respiratory Rate 26 H Blood Pressure 147/73 H 151/79 H Pulse Oximetry 97 Oxygen Delivery Method 09/08/23 12:56 09/08/23 13:08 09/08/23 13:09 Pulse Rate 64 63 Respiratory Rate 17 Blood Pressure 151/79 H 161/81 H Pulse Oximetry 98 Oxygen Delivery Method 09/08/23 13:09 09/08/23 13:30 09/08/23 13:30 Pulse Rate 63 63 Respiratory Rate 16 16 Blood Pressure 156/74 H Pulse Oximetry 99 98 Oxygen Delivery Method 09/08/23 14:00 09/08/23 14:00 09/08/23 14:17 Pulse Rate 63 62 Respiratory Rate 23 19 Blood Pressure 159/75 H Pulse Oximetry 96 97 Oxygen Delivery Method 09/08/23 14:17 09/08/23 14:30 09/08/23 14:30 Pulse Rate 62 Respiratory Rate 13 Blood Pressure 162/78 H 151/73 H Pulse Oximetry 97 Oxygen Delivery Method <Jeimy Mccormick MD - Last Filed: 09/11/23 07:15> Orders Ordered: Discontinued Medications Aspirin (Aspirin Ec 81 Mg Tablet) 81 mg PO NOW ONE Stop: 09/08/23 14:51 Last Admin: 09/08/23 15:55 Dose: Not Given Documented By: SB Sodium Chloride (Normal Saline 0.9%) 500 mls @ 1,000 mls/hr IV BOLUS ONE Stop: 09/08/23 12:39 Last Infusion: 09/08/23 12:58 Dose: Infused Documented By: Admin: 09/08/23 12:25 Dose: 1,000 mls/hr Documented By: ARI Losartan Potassium (Losartan 25 Mg Tablet) 25 mg PO NOW ONE Stop: 09/08/23 12:41 Last Admin: 09/08/23 12:56 Dose: 25 mg Documented By: AMISHA Vital Signs Vital signs: Vital Signs - 8 hr 09/08/23 11:30 09/08/23 12:17 09/08/23 12:27 Pulse Rate 82 68 66 Respiratory Rate 16 16 Blood Pressure 160/90 H Pulse Oximetry 97 97 97 Oxygen Delivery Method Room Air 09/08/23 12:27 09/08/23 12:30 09/08/23 12:30 Pulse Rate 69 Respiratory Rate 26 H Blood Pressure 147/73 H 151/79 H Pulse Oximetry 97 Oxygen Delivery Method 09/08/23 12:56 09/08/23 13:08 09/08/23 13:09 Pulse Rate 64 63 Respiratory Rate 17 Blood Pressure 151/79 H 161/81 H Pulse Oximetry 98 Oxygen Delivery Method 09/08/23 13:09 09/08/23 13:30 09/08/23 13:30 Pulse Rate 63 63 Respiratory Rate 16 16 Blood Pressure 156/74 H Pulse Oximetry 99 98 Oxygen Delivery Method 09/08/23 14:00 09/08/23 14:00 09/08/23 14:17 Pulse Rate 63 62 Respiratory Rate 23 19 Blood Pressure 159/75 H Pulse Oximetry 96 97 Oxygen Delivery Method 09/08/23 14:17 09/08/23 14:30 09/08/23 14:30 Pulse Rate 62 Respiratory Rate 13 Blood Pressure 162/78 H 151/73 H Pulse Oximetry 97 Oxygen Delivery Method Medical Decision Making <Eric Burgess MD - Last Filed: 09/10/23 07:17> Lab Data 09/08/23 12:11 09/08/23 12:11 Labs: Lab Results 09/08/23 Range/Units 12:11 WBC 3.7 L (4.5-11.0) X10^3/uL RBC 4.18 (4.0-5.2) X10^6/uL Hgb 12.3 (12.0-16.0) g/dL Hct 36.6 (36-46) % MCV 87.7 (80-100) fL MCH 29.4 (26-34) PG MCHC 33.5 (30-36) % RDW 13.1 (11.6-14.8) % Plt Count 194 (150-400) X10^3/uL Neut % (Auto) 58.6 (50-75) % Lymph % (Auto) 31.6 (25-40) % [place] % (Auto) 6.9 (3-14) % Eos % (Auto) 2.0 (2-4) % Baso % (Auto) 0.9 (0-2) % Neut # (Auto) 2100 (3093-9592) /uL Lymph # (Auto) 1200 (4308-1960) /uL [place] # (Auto) 300 (0-900) /uL Eos # (Auto) 100 (0-450) /uL Baso # (Auto) 0 (0-100) /uL Sodium 139 (137-145) mmol/L Potassium 4.1 (3.4-5.1) mmol/L Chloride 109 H (98-107) mmol/L Carbon Dioxide 29 (22-32) mmol/L BUN 20 H (7-17) mg/dL Creatinine 0.71 (0.52-1.04) mg/dL Estimated GFR > 60 (>60) mL/min BUN/Creatinine Ratio 28.2 H (6-22) Glucose 121 H (80-110) mg/dL Calcium 8.7 (8.4-10.2) mg/dL Total Bilirubin 0.7 (0.2-1.3) mg/dL AST 31 (14-36) IU/L ALT 19 (<35) IU/L Alkaline Phosphatase 45 (38-126) U/L Total Creatine Kinase 134 (30-135) U/L Troponin I < 0.012 (0.01-0.034) ng/mL Total Protein 6.4 (6.3-8.2) g/dL Albumin 3.8 (3.5-5.0) g/dL Globulin 2.6 (1.7-4.1) g/dL Albumin/Globulin Ratio 1.5 (1.0-2.8) Imaging Data CT scan - head: Radiologist's Impression: [place] [address] CT Scan Report Signed Patient: Kylah Lobo MR#: [id number] : 1955 Acct:[id number] Age/Sex: 68 / F Date of Service: 09/08/23 Loc: ED Accession Number: [id number] Procedure: CT head/brain wo con Ordering Provider: Eric Burgess MD PROCEDURE: CT HEAD/BRAIN WO CON INDICATIONS: dizzy TECHNIQUE: Noncontrast 4.5 mm thick angled axial sections acquired from the foramen magnum to the vertex, with coronal and sagittal reformats. For radiation dose reduction, the following was used: automated exposure control, adjustment of mA and/or kV according to patient size. COMPARISON: None. FINDINGS: Image quality: Diagnostic CSF spaces: Basal cisterns are patent. Lateral ventricles are symmetric. Volume: Mild volume loss Brain: No intracranial hemorrhage. Hawkins-white differentiation is grossly maintained. 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 If there is high concern for infarct, consider MRI. Dictated by: Kendrick Parker M.D. on 09/08/2023 at 13:42 Approved by: Kendrick Parker M.D. on 09/08/2023 at 13:43 CTA - brain/neck: Radiologist's Impression: [place] [address] CT Scan Report Signed Patient: Kylah Lobo MR#: [id number] : 1955 Acct:[id number] Age/Sex: 68 / F Date of Service: 09/08/23 Loc: ED Accession Number: [id number] Procedure: CT angio head and neck Ordering Provider: Eric Burgess MD PROCEDURE: CT ANGIO HEAD AND NECK INDICATIONS: Dizzy/hypertensive TECHNIQUE: After the administration of intravenous contrast, 1 mm thick sections acquired from the aortic arch through the [place] of [place]. 3-dimensional mzbukht-tovhtdjlk-xqibwptfwl (MIP) and/or volume rendering reformats were acquired of the central intracranial vasculature and neck separately. For radiation dose reduction, the following was used: automated exposure control, adjustment of mA and/or kV according to patient size. COMPARISON: None. FINDINGS: Image quality: Diagnostic HEAD ANGIOGRAPHY: Anterior circulation: ICAs: Mild cavernous carotid calcifications ACAs: Normal and symmetric MCAs: Mild intracranial irregularities indicating intracranial atherosclerosis. No large vessel occlusion AComm: No aneurysm Venous sinuses: Patent where visualized Posterior circulation: Dominance: Slightly left dominant Vertebral arteries: No stenosis or occlusion. No aneurysm. Basilar artery: Fenestrated basilar artery PComms: No aneurysm compensation consultant: Unremarkable NECK ANGIOGRAPHY: Aortic arch and subclavian arteries: Normal flow, no aneurysm. CCAs: No stenosis, occlusion, or aneurysm. ICA origins (by NASCET criteria): No hemodynamically significant narrowing. ICAs: Mild beading of the bilateral cervical ICAs, without significant narrowing, sometimes due to FMD. ECAs: Origins are patent. Vertebral arteries: Unremarkable Soft tissues: No significant mass, aneurysm, or lymphadenopathy Lung apices: No pneumothorax Bones: No acute or suspicious abnormality. IMPRESSION: No large vessel occlusion or high-grade stenosis. Other findings as above. If there is high concern for infarct, consider MRI. Any quantitative measurements of stenosis were performed using NASCET criteria. Dictated by: Kendrick Parker M.D. on 09/08/2023 at 13:44 Approved by: Kendrick Parker M.D. on 09/08/2023 at 13:49 MRI brain: Radiologist's Impression: [address] [address] Magnetic Resonance Report Signed Patient: Kylah Lobo MR#: [id number] : 1955 Acct:[id number] Age/Sex: 68 / F Date of Service: 09/08/23 Loc: ED Accession Number: [id number] Procedure: MR head/brain wo con Ordering Provider: Eric Burgess MD PROCEDURE: MR HEAD/BRAIN WO CON INDICATIONS: TIA/dizziness TECHNIQUE: Non-contrast axial T1 spin echo, axial T2 fast spin echo, sagittal and axial FLAIR, coronal T2 fast spin echo, axial gradient echo, axial diffusion and ADC through the brain. COMPARISON: [facility], CT, CT HEAD/BRAIN WO CON, 09/08/2023, 12:59. [facility], CT, CT ANGIO HEAD AND NECK, 09/08/2023, 12:59. FINDINGS: Image quality: Excellent. CSF spaces: Ventricles appear symmetric in size and shape. Basal cisterns are patent. No extra-axial fluid collections. Brain: No intracranial bleeds or mass effects. There is cerebral volume loss for age. There are periventricular and deep white matter chronic small vessel ischemic changes. Brainstem appears normal. Diffusion-weighted images show no acute infarct. No chronic ischemic insults. Normal intravascular flow voids are present. Skull and face: Calvarial bone marrow is normal in signal. Orbits are normal. Note is made of bilateral lens replacements. Sinuses: Sinuses and mastoids are clear. IMPRESSION: No findings of acute or subacute infarction can be seen. Note is made of age-appropriate brain parenchymal volume loss and chronic small vessel ischemic changes. Dictated by: Quinten Magaña M.D. on 09/08/2023 at 14:28 Approved by: Quinten Magaña M.D. on 09/08/2023 at 14:30 [facility] Narrative Medical decision making narrative: Patient brought self here from home. Complains of elevated blood pressure dizziness/vision changes. Patient seen by primary care 3 months ago for wellness check. She has been on losartan 25 mg daily for over a year. She has on a statin medication as well.. Patient has been doing well with her health. She walks about 4 miles a day. No exertional intolerance. No dyspnea. She went to bed last night without any complaints. She takes her blood pressure about once a week. Usually systolic is 120 or it might be 130. This past Sunday the systolic was 120. This morning when she awoke she went and walked her dog as usual and had no cardiovascular neuro complaints. No chest pain no dyspnea no palpitations no headache no dizziness no vision changes. When she returned home she did have some dizziness, when she looked across the room it felt like she was in a cruise ship looking out a window in the environment was shifting. This lasted less than a minute she states. That has resolved. She took her blood pressure in the systolic was 170. This was at 10:00 a.m.. It is now 12:00 p.m.. Triage blood pressure 160/90. Blow or notes from primary care back in May of this year with Dr. Jules, pcp. Today she denies any chest pain palpitations headache dyspnea back pain or abdominal pain. No numbness tingling or weakness. Patient did not test if it was 1 eye or both eyes that caused visual disturbance4 After history and exam CBC CMP troponin EKG CT head/angiogram head neck face man, normal saline MDM Medical records reviewed: May 2023 primary care office visit Differential considered: Includes but not limited to hypertensive urgency stroke TIA, labyrinthitis, vertigo, vestibular neuritis Lab Test results independently reviewed as above. Pertinent findings: Troponin less than 0.012 BUN 20 creatinine 0.71 Independently reviewed EKG normal sinus rhythm rate [address] elevation or depression. EKG unchanged from May 02, 2022 at 4:57 p.m.. Imaging studies independently reviewed: CT head CT angiogram head and neck no acute finding, MRI no acute finding Consultations: 2:48 p.m.. Spoke with [facility] tele stroke, neurology, Dr. Darby, no admission indicated at this time, agrees for MRI here in the ER department. May start baby aspirin daily until follow up with primary care. 3:00 p.m.. Spoke with hospitalist, Dr. Saha, she agrees, if MRI is unremarkable can discharge home and follow up with primary care for blood pressure management. In the meantime can take losartan 50 mg a day. She did review echocardiogram that was done 3 months ago and it is reassuring as well. However, if MRI reveals acute process she will admit patient Treatments: Normal saline, losartan Re-evaluations: 12:41 p.m.. Blood pressure remains higher than average for patient. Systolic 151. Losartan 25 mg will be ordered 2:55 p.m.. Patient has been taken to MRI department. Tele stroke/Neurology/[facility] provider has been contacted for treatment plan. May discharge home if MRI shows no acute process Discussion: Appropriate for discharge home. Exam and laboratory studies and imaging studies are reassuring. Neurology service was consulted. Hospitalist service was consulted as well for disposition plan. MRI reassuring can be discharged home. Blood pressure management can be follow up with primary care Diagnosis: Dizziness/hypertension 3:[address] Burgess: Sign out to Dr. Mccormick MRI studies are pending. Neurology services and hospitalist service has been contacted. Need to update patient results. <Jeimy Mccormick MD - Last Filed: 09/11/23 07:15> Lab Data Labs: Lab Results 09/08/23 Range/Units 12:11 WBC 3.7 L (4.5-11.0) X10^3/uL RBC 4.18 (4.0-5.2) X10^6/uL Hgb 12.3 (12.0-16.0) g/dL Hct 36.6 (36-46) % MCV 87.7 (80-100) fL MCH 29.4 (26-34) PG MCHC 33.5 (30-36) % RDW 13.1 (11.6-14.8) % Plt Count 194 (150-400) X10^3/uL Neut % (Auto) 58.6 (50-75) % Lymph % (Auto) 31.6 (25-40) % [place] % (Auto) 6.9 (3-14) % Eos % (Auto) 2.0 (2-4) % Baso % (Auto) 0.9 (0-2) % Neut # (Auto) 2100 (4196-7783) /uL Lymph # (Auto) 1200 (5433-9594) /uL [place] # (Auto) 300 (0-900) /uL Eos # (Auto) 100 (0-450) /uL Baso # (Auto) 0 (0-100) /uL Sodium 139 (137-145) mmol/L Potassium 4.1 (3.4-5.1) mmol/L Chloride 109 H (98-107) mmol/L Carbon Dioxide 29 (22-32) mmol/L BUN 20 H (7-17) mg/dL Creatinine 0.71 (0.52-1.04) mg/dL Estimated GFR > 60 (>60) mL/min BUN/Creatinine Ratio 28.2 H (6-22) Glucose 121 H (80-110) mg/dL Calcium 8.7 (8.4-10.2) mg/dL Total Bilirubin 0.7 (0.2-1.3) mg/dL AST 31 (14-36) IU/L ALT 19 (<35) IU/L Alkaline Phosphatase 45 (38-126) U/L Total Creatine Kinase 134 (30-135) U/L Troponin I < 0.012 (0.01-0.034) ng/mL Total Protein 6.4 (6.3-8.2) g/dL Albumin 3.8 (3.5-5.0) g/dL Globulin 2.6 (1.7-4.1) g/dL Albumin/Globulin Ratio 1.5 (1.0-2.8) MDM Narrative Medical decision making narrative: Patient brought self here from home. Complains of elevated blood pressure dizziness/vision changes. Patient seen by primary care 3 months ago for wellness check. She has been on losartan 25 mg daily for over a year. She has on a statin medication as well.. Patient has been doing well with her health. She walks about 4 miles a day. No exertional intolerance. No dyspnea. She went to bed last night without any complaints. She takes her blood pressure about once a week. Usually systolic is 120 or it might be 130. This past Sunday the systolic was 120. This morning when she awoke she went and walked her dog as usual and had no cardiovascular neuro complaints. No chest pain no dyspnea no palpitations no headache no dizziness no vision changes. When she returned home she did have some dizziness, when she looked across the room it felt like she was in a cruise ship looking out a window in the environment was shifting. This lasted less than a minute she states. That has resolved. She took her blood pressure in the systolic was 170. This was at 10:00 a.m.. It is now 12:00 p.m.. Triage blood pressure 160/90. Blow or notes from primary care back in May of this year with Dr. Jules, pcp. Today she denies any chest pain palpitations headache dyspnea back pain or abdominal pain. No numbness tingling or weakness. Patient did not test if it was 1 eye or both eyes that caused visual disturbance4 After history and exam CBC CMP troponin EKG CT head/angiogram head neck face man, normal saline MDM Medical records reviewed: May 2023 primary care office visit Differential considered: Includes but not limited to hypertensive urgency stroke TIA, labyrinthitis, vertigo, vestibular neuritis Lab Test results independently reviewed as above. Pertinent findings: Troponin less than 0.012 BUN 20 creatinine 0.71 Independently reviewed EKG normal sinus rhythm rate [address] elevation or depression. EKG unchanged from May 02, 2022 at 4:57 p.m.. Imaging studies independently reviewed: CT head CT angiogram head and neck no acute finding, MRI no acute finding Consultations: 2:48 p.m.. Spoke with [facility] tele stroke, neurology, Dr. Darby, no admission indicated at this time, agrees for MRI here in the ER department. May start baby aspirin daily until follow up with primary care. 3:00 p.m.. Spoke with hospitalist, Dr. Saha, she agrees, if MRI is unremarkable can discharge home and follow up with primary care for blood pressure management. In the meantime can take losartan 50 mg a day. She did review echocardiogram that was done 3 months ago and it is reassuring as well. However, if MRI reveals acute process she will admit patient Treatments: Normal saline, losartan Re-evaluations: 12:41 p.m.. Blood pressure remains higher than average for patient. Systolic 151. Losartan 25 mg will be ordered 2:55 p.m.. Patient has been taken to MRI department. Tele stroke/Neurology/[facility] provider has been contacted for treatment plan. May discharge home if MRI shows no acute process Discussion: Appropriate for discharge home. Exam and laboratory studies and imaging studies are reassuring. Neurology service was consulted. Hospitalist service was consulted as well for disposition plan. MRI reassuring can be discharged home. Blood pressure management can be follow up with primary care Diagnosis: Dizziness/hypertension 3:[address] Burgess: Sign out to Dr. Mccormick MRI studies are pending. Neurology services and hospitalist service has been contacted. Need to update patient results. MRI negative. Patient discharged home with PCP follow up Discharge Plan Departure Patient Disposition: Home Clinical Impression: Dizziness Hypertension Qualifiers: Hypertension type: unspecified Qualified Code(s): I10 - Essential (primary) hypertension Instructions: DI for High Blood Pressure, DI for Dizziness-Nonvertigo Activity Restrictions/Additional Instructions: Your exam and laboratory studies and imaging studies are reassuring today. Neurology services was contacted today. Your symptoms may have been due to your blood pressure elevation. Please see family doctor next week for re-evaluation of your blood pressure and possible changes to your blood pressure medication treatment. In the meantime, please take your losartan twice a day, once in the morning and once at night until Sunday when you contact your family doctor. Prescription for aspirin 81 mg once a day has been provided for you. Please continue this until you see your family doctor Prescriptions: New aspirin 81 mg tablet,chewable 81 mg PO DAILY Qty: 14 0RF No Action cholecalciferol (vitamin D3) 125 mcg (5,000 unit) capsule 125 mcg PO DAILY valacyclovir [Valtrex] 1 gram tablet 1,000 mg PO BID PRN (Reason: cold sores) Qty: 4 5RF Rx Instructions: for 1 day losartan 25 mg tablet 25 mg PO DAILY Qty: 90 3RF rosuvastatin [Crestor] 10 mg tablet 10 mg PO DAILY Qty: 90 3RF Referrals: Iker Jules DO [Primary Care Provider] - Stand Alone Forms: Patient Portal/API
--- NOTE | 2023-09-08 12:00 | DI.CT.S_ITS ---
PROCEDURE: CT HEAD/BRAIN WO CON INDICATIONS: dizzy TECHNIQUE: Noncontrast 4.5 mm thick angled axial sections acquired from the foramen magnum to the vertex, with coronal and sagittal reformats. For radiation dose reduction, the following was used: automated exposure control, adjustment of mA and/or kV according to patient size. COMPARISON: None. FINDINGS: Image quality: Diagnostic CSF spaces: Basal cisterns are patent. Lateral ventricles are symmetric. Volume: Mild volume loss Brain: No intracranial hemorrhage. Hawkins-white differentiation is grossly maintained. 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 If there is high concern for infarct, consider MRI. Dictated by: Kendrick Parker M.D. on 09/08/2023 at 13:42 Approved by: Kendrick Parker M.D. on 09/08/2023 at 13:43
--- NOTE | 2023-09-08 12:09 | DI.CT.S_ITS ---
PROCEDURE: CT ANGIO HEAD AND NECK INDICATIONS: Dizzy/hypertensive TECHNIQUE: After the administration of intravenous contrast, 1 mm thick sections acquired from the aortic arch through the [place] of [place]. 3-dimensional yrkjnba-zngmhygvs-htmcvmrevx (MIP) and/or volume rendering reformats were acquired of the central intracranial vasculature and neck separately. For radiation dose reduction, the following was used: automated exposure control, adjustment of mA and/or kV according to patient size. COMPARISON: None. FINDINGS: Image quality: Diagnostic HEAD ANGIOGRAPHY: Anterior circulation: ICAs: Mild cavernous carotid calcifications ACAs: Normal and symmetric MCAs: Mild intracranial irregularities indicating intracranial atherosclerosis. No large vessel occlusion AComm: No aneurysm Venous sinuses: Patent where visualized Posterior circulation: Dominance: Slightly left dominant Vertebral arteries: No stenosis or occlusion. No aneurysm. Basilar artery: Fenestrated basilar artery PComms: No aneurysm locomotive operator helper: Unremarkable NECK ANGIOGRAPHY: Aortic arch and subclavian arteries: Normal flow, no aneurysm. CCAs: No stenosis, occlusion, or aneurysm. ICA origins (by NASCET criteria): No hemodynamically significant narrowing. ICAs: Mild beading of the bilateral cervical ICAs, without significant narrowing, sometimes due to FMD. ECAs: Origins are patent. Vertebral arteries: Unremarkable Soft tissues: No significant mass, aneurysm, or lymphadenopathy Lung apices: No pneumothorax Bones: No acute or suspicious abnormality. IMPRESSION: No large vessel occlusion or high-grade stenosis. Other findings as above. If there is high concern for infarct, consider MRI. Any quantitative measurements of stenosis were performed using NASCET criteria. Dictated by: Kendrick Parker M.D. on 09/08/2023 at 13:44 Approved by: Kendrick Parker M.D. on 09/08/2023 at 13:49
[2023-09-08 12:19] LABS: Add Manual Diff / Slide Review NO; Basophils Absolute Auto 0 /uL (0-100); Basophils Percent Auto 0.9 % (0-2); Eosinophils Absolute Auto 100 /uL (0-450); Hematocrit 36.6 % (36-46); Hemoglobin 12.3 g/dL (12.0-16.0); Lymphocytes Absolute Auto 1200 /uL (1100-4500); Lymphocytes Percent Auto 31.6 % (25-40); Mean Corpuscular HGB Conc 33.5 % (30-36); Mean Corpuscular Hemoglobin 29.4 PG (26-34); Mean Corpuscular Volume 87.7 fL (80-100); Monocytes Absolute Auto 300 /uL (0-900); Monocytes Percent Auto 6.9 % (3-14); Neutrophils Absolute Auto 2100 /uL (1500-7000); Neutrophils Percent Auto 58.6 % (50-75); Platelet Count 194 X10^3/uL (150-400); Red Blood Cell Count 4.18 X10^6/uL (4.0-5.2); Red Cell Distribution Width 13.1 % (11.6-14.8); White Blood Cell Count 3.7 X10^3/uL (4.5-11.0)
[2023-09-08] MEDS: SODIUM CHLORIDE 0.9% 500 ML 1000 ML IV (12:25)
--- NOTE | 2023-09-08 12:26 | EKG_ITS ---
[address] [address] Test Date: 2023-09-08 Pat Name: Estella Rodriguez Department: Room: Gender: Female Investor Relations Director: niurka : 1955 Requested By: Order Number: [id number] Reading MD: Stephon Peoples MD Measurements Intervals [place] Rate: 65 P: 37 AK: 164 QRS: -11 QRSD: 76 T: 108 QT: 420 QTc: 436 Interpretive Statements Normal sinus rhythm Nonspecific T wave abnormality Electronically Signed On 09-09-2023 12:04:03 PDT by Stephon Peoples MD
--- NOTE | 2023-09-08 12:26 | EKG_ITS ---
[address] [address] Test Date: 2023-09-08 Pat Name: Estella Rodriguez Department: Room: Gender: Female Logistics Center Manager: niurka : 1955 Requested By: Order Number: [id number] Reading MD: Yordan Yadav Measurements Intervals [place] Rate: 65 P: 23 VT: 168 QRS: -11 QRSD: 78 T: 47 QT: 414 QTc: 430 Interpretive Statements Normal sinus rhythm Nonspecific T wave abnormality Electronically Signed On 09-12-2023 7:40:22 PDT by Yordan Yadav
[2023-09-08 12:39] LABS: Alanine Aminotransferase 19 IU/L (<35); Albumin 3.8 g/dL (3.5-5.0); Albumin Globulin Ratio 1.5 (1.0-2.8); Alkaline Phosphatase 45 U/L (38-126); Aspartate Aminotransferase 31 IU/L (14-36); BUN Creatinine Ratio 28.2 (6-22); Bilirubin Total 0.7 mg/dL (0.2-1.3); Blood Urea Nitrogen 20 mg/dL (7-17); Calcium 8.7 mg/dL (8.4-10.2); Carbon Dioxide 29 mmol/L (22-32); Chloride 109 mmol/L (98-107); Creatine Kinase 134 U/L (30-135); Estimated Glomerular Filt Rate > 60 mL/min (>60); Globulin 2.6 g/dL (1.7-4.1); Glucose 121 mg/dL (80-110); HEMOLYSIS < 15 (0-50); Potassium 4.1 mmol/L (3.4-5.1); Sodium 139 mmol/L (137-145); Total Protein 6.4 g/dL (6.3-8.2)
[2023-09-08 12:50] LABS: Troponin I < 0.012 ng/mL (0.01-0.034)
[2023-09-08] MEDS: LOSARTAN 25 MG TABLET PO (12:56)
--- NOTE | 2023-09-08 13:21 | DI.MRI.S_ITS ---
PROCEDURE: MR HEAD/BRAIN WO CON INDICATIONS: TIA/dizziness TECHNIQUE: Non-contrast axial T1 spin echo, axial T2 fast spin echo, sagittal and axial FLAIR, coronal T2 fast spin echo, axial gradient echo, axial diffusion and ADC through the brain. COMPARISON: [facility], CT, CT HEAD/BRAIN WO CON, 09/08/2023, 12:59. [facility], CT, CT ANGIO HEAD AND NECK, 09/08/2023, 12:59. FINDINGS: Image quality: Excellent. CSF spaces: Ventricles appear symmetric in size and shape. Basal cisterns are patent. No extra-axial fluid collections. Brain: No intracranial bleeds or mass effects. There is cerebral volume loss for age. There are periventricular and deep white matter chronic small vessel ischemic changes. Brainstem appears normal. Diffusion-weighted images show no acute infarct. No chronic ischemic insults. Normal intravascular flow voids are present. Skull and face: Calvarial bone marrow is normal in signal. Orbits are normal. Note is made of bilateral lens replacements. Sinuses: Sinuses and mastoids are clear. IMPRESSION: No findings of acute or subacute infarction can be seen. Note is made of age-appropriate brain parenchymal volume loss and chronic small vessel ischemic changes. Dictated by: Quinten Magaña M.D. on 09/08/2023 at 14:28 Approved by: Quinten Magaña M.D. on 09/08/2023 at 14:30
== END 2023-09-08 15:56 | disposition home or self-care (01) ==
PROVIDERS: Emergency Provider Emergency Medicine; PCP Family Medicine
DX: I10 Essential (primary) hypertension (principal); R42 Dizziness and giddiness
CPT/HCPCS: 36415; 70450; 70496; 70498; 70551; 80053; 82550; 84484; 85025; 93005; 93010; 96360; 99284; 99285; Q9967

== ENCOUNTER → 2023-10-30 14:45 | Outpatient (CLI) | payer MEDICARE, OTHER, SELFPAY ==
--- NOTE | 2023-10-30 14:47 | DI.MG.S_ITS ---
BILATERAL DIGITAL SCREENING MAMMOGRAM 3D/2D WITH CAD: 10/30/2023 CLINICAL: Routine screening. Family history of breast cancer. Comparison is made to exams dated: 10/05/2022 mammogram, 09/21/2021 mammogram, and 09/18/2020 mammogram - [facility]. There are scattered areas of fibroglandular density in both breasts (category b / 25%-50% glandular tissue). Current study was also evaluated with a Computer Aided Detection (CAD) system. No significant masses, calcifications, or other findings are seen in either breast. There has been no significant interval change. IMPRESSION: NEGATIVE There is no mammographic evidence of malignancy. A 1 year screening mammogram is recommended. Based on the Tyrer Cuzick model (a risk assessment model) the patient's lifetime risk is 7.7% and her 10 year risk is 4.1%. According to the ACR, ACS, and NCCN guidelines, an annual breast MRI exam along with mammogram is recommended if the patient's lifetime risk is 20% or greater. This exam was interpreted at Station ID: [id number]. NOTE: For mammograms, a report in lay terms will be sent to the patient. Approximately 15% of breast malignancies will not be visualized mammographically. In the management of a palpable breast mass, a negative mammogram must not discourage biopsy of a clinically suspicious lesion. Electronically Signed By: Eduar george/rohit:10/30/2023 21:23:08 copy to: NEFTALY JOHN letter sent: Normal Exam ACR BI-RADS Category 1: Negative [id number]
== END ==
LOC: MAMMO 14:46
PROVIDERS: PCP Family Medicine; Referring Provider Family Medicine; Visit Provider Family Medicine
DX: Z12.31 Encounter for screening mammogram for malignant neoplasm of breast (principal); Z80.3 Family history of malignant neoplasm of breast; R92.323 Mammographic fibroglandular density, bilateral breasts
CPT/HCPCS: 77063; 77067

== ENCOUNTER → 2024-01-15 12:03 | Outpatient (CLI) | payer MEDICARE, OTHER, SELFPAY ==
[2024-01-15 12:40] LABS: Add Manual Diff / Slide Review NO; Basophils Absolute Auto 0 /uL (0-100); Basophils Percent Auto 0.8 % (0-2); Eosinophils Absolute Auto 100 /uL (0-450); Eosinophils Percent Auto 2.8 % (2-4); Hematocrit 38.1 % (36-46); Hemoglobin 12.5 g/dL (12.0-16.0); Lymphocytes Absolute Auto 1500 /uL (1100-4500); Lymphocytes Percent Auto 34.4 % (25-40); Mean Corpuscular HGB Conc 32.9 % (30-36); Mean Corpuscular Hemoglobin 29.2 PG (26-34); Mean Corpuscular Volume 88.9 fL (80-100); Monocytes Absolute Auto 400 /uL (0-900); Monocytes Percent Auto 8.3 % (3-14); Neutrophils Absolute Auto 2400 /uL (1500-7000); Neutrophils Percent Auto 53.7 % (50-75); Platelet Count 201 X10^3/uL (150-400); Red Blood Cell Count 4.29 X10^6/uL (4.0-5.2); Red Cell Distribution Width 12.9 % (11.6-14.8); White Blood Cell Count 4.4 X10^3/uL (4.5-11.0)
[2024-01-15 13:43] LABS: Ferritin 12 ng/mL (11-264)
[2024-01-16 16:21] LABS: Hep C Virus Ab w/Reflex Quant NEGATIVE s/c (NEGATIVE)
== END ==
PROVIDERS: PCP Family Medicine; Referring Provider Family Medicine; Visit Provider Family Medicine
DX: Z11.59 Encounter for screening for other viral diseases (principal); R79.0 Abnormal level of blood mineral; D50.9 Iron deficiency anemia, unspecified
CPT/HCPCS: 36415; 82728; 85025; 86803

== ENCOUNTER → 2024-03-21 15:48 | Outpatient (CLI) | payer MEDICARE, OTHER, SELFPAY | PROVIDERS: PCP Family Medicine; Visit Provider Family Medicine | DX: R31.9 Hematuria, unspecified (principal) | CPT/HCPCS: 87086 ==

== ENCOUNTER → 2024-04-09 12:35 | Outpatient (CLI) | payer MEDICARE, OTHER, SELFPAY ==
[2024-04-09 13:21] LABS: Appearance Urine UA CLEAR; Bilirubin Urine UA NEGATIVE (NEGATIVE); Color Urine UA YELLOW; Glucose Urine UA NEGATIVE (Negative); Ketones Urine UA NEGATIVE (NEGATIVE); Leukocyte Esterase Urine UA NEGATIVE (NEGATIVE); Nitrite Urine UA NEGATIVE (Negative); Occult Blood Urine UA NEGATIVE (Negative); Protein Urine UA NEGATIVE (Negative); Urobilinogen Urine UA 0.2 E.U./dL (0.2)
[2024-04-09 13:24] LABS: Urine Volume 10mL (spun)
[2024-04-09 13:25] LABS: Bacteria Urine None Seen; Culture Indicated Urine Cult Not Indicated; RBC Urine None Seen (0-5/HPF); Squamous Epithelial Cell Urine None Seen (0-5/HPF); WBC Urine None Seen (0-5/HPF)
== END ==
LOC: LAB 12:38
PROVIDERS: PCP Family Medicine; Referring Provider Family Medicine; Visit Provider Family Medicine
DX: R31.9 Hematuria, unspecified (principal)
CPT/HCPCS: 81001

== ENCOUNTER 2024-06-21 11:04 | Emergency (ER) | payer MEDICARE, OTHER, SELFPAY ==
[2024-06-21 11:14] VITALS: BP 167/99; PULSE 100; RESP 18; TEMP 36.4; O2SAT 96; BMI 29.9
--- NOTE | 2024-06-21 11:50 | ED.ANIMALBIT ---
HPI - Animal Bite <Zarina Ríos PA-C - Last Filed: 06/21/24 17:12> General Chief Complaint: Animal Bite Stated Complaint: Dog Bite Time Seen by Provider: 06/21/24 11:34 Source: patient Mode of arrival: Ambulatory History of Present Illness HPI narrative: 69-year-old woman presents with concern for dog bite to her right lateral calf. Patient states that around 10 30 this morning she was walking her small 20 lb poodle mix and the neighbor's dogs were not properly secured and the 2 neighbor [place] got out and started being aggressive with her dog. She got bitten on her right leg in an attempt to separate her dog from these dogs. She states she sustained no other injuries but noted it swelled up extremely quickly and came in for further evaluation and antibiotics. She states that the neighbor dogs are completely vaccinated although she herself has not had a tetanus shot for over 15 years. She was unsure if the dog definitely punctured her leg but she has multiple areas of open skin/scrapes from the teeth. She denies any difficulty with moving her ankle foot or knee or any other complaints or concerns. She is not currently taking a daily aspirin or any blood thinners. Related Data Home Medications Medication Instructions Recorded Confirmed cholecalciferol (vitamin D3) 125 125 mcg PO DAILY 06/16/20 03/21/24 mcg (5,000 unit) capsule Previous Rx's Medication Instructions Recorded valacyclovir 1 gram tablet 1,000 mg PO BID PRN cold sores #4 12/20/22 (Valtrex) tabs rosuvastatin 10 mg tablet (Crestor) 10 mg PO DAILY cholesterol #90 tabs 06/20/23 aspirin 81 mg chewable tablet 81 mg PO DAILY #14 tabs 09/08/23 losartan 50 mg tablet 50 mg PO DAILY blood pressure #90 09/17/23 tabs amoxicillin 875 mg-potassium 1 tab PO Q12H dog bite, infection 06/21/24 clavulanate 125 mg tablet prophylaxis 7 days #14 tabs Allergies Allergy/AdvReac Type Severity Reaction Status Date / Time bee venom protein (honey bee) AdvReac Intermediate SWELLING Verified 03/21/24 16:03 Review of Systems <Zarina Ríos PA-C - Last Filed: 06/21/24 17:12> Review of Systems Narrative: See HPI Patient History <Zarina Ríos PA-C - Last Filed: 06/21/24 17:12> Medical History Encounter for subsequent annual wellness visit (AWV) in Medicare patient Low ferritin IFG (impaired fasting glucose) Has end of life care plan Low hemoglobin and low hematocrit Benign essential HTN UTI (urinary tract infection) Asthma Mixed hyperlipidemia (01/2020) Vision disorder Knee pain (~2018) Mumps Measles Chicken pox Anemia (~2002) Heavy menstrual period (~2002) Fibroids (~2002) Surgical History Anesthesia Status post hysterectomy (~2003) Family History Brother Age: 64 Diabetes mellitus Hypertension Mental health problem Morbid obesity Father Diabetes mellitus Heart disease Hypertension High cholesterol Mother Cancer Hypertension Hyperlipidemia Grandfather Cancer Heavy smoker Grandfather Stroke Grandmother No problems noted. Grandmother No problems noted. Social History household members: none Smoking Status: Never smoker second hand exposure: No alcohol intake: current substance use type: does not use Smoking Status: Never smoker alcohol intake frequency: a few times a month Exam <Zarina Ríos PA-C - Last Filed: 06/21/24 17:12> Narrative Exam Narrative: GENERAL: 69 year old patient appears stated age. Well-developed patient, in mild distress. HEAD: Atraumatic. Normocephalic. EYES: Pupils equal round and reactive. Extraocular motions intact. No scleral icterus. No injection or drainage. ENT: Nose without bleeding, purulent drainage. Airway patent. NECK: Trachea midline. CARDIOVASCULAR: Regular rate and rhythm without murmurs, gallops, or rubs. RESPIRATORY: Clear to auscultation. Breath sounds equal bilaterally. No wheezes, rales, or rhonchi. EXTREMITIES: On the affected right lower leg on the mid lateral calf there is hematoma/swollen area that is approximately 5 cm in diameter at the center there is an area with multiple scrapes and possible shallow puncture wounds consistent with a large dogs mouth area of scrapes is approximately 3 cm in diameter. There is some bruising forming and mild erythema present. There is normoactive range of motion at the knee and ankle. Strong distal pulses. No edema or joint tenderness. NEURO: AOx3. SKIN: No rash or erythema of visible areas Initial Vital Signs Initial Vital Signs: Vital Signs Temperature 97.5 F L 06/21/24 11:14 Pulse Rate 100 H 06/21/24 11:14 Respiratory Rate 18 06/21/24 11:14 Blood Pressure 167/99 H 06/21/24 11:14 Pulse Oximetry 96 06/21/24 11:14 Oxygen Delivery Method Room Air 06/21/24 11:14 <Jeimy Christiansen DO - Last Filed: 06/22/24 09:29> Initial Vital Signs Initial Vital Signs: Vital Signs Temperature 97.5 F L 06/21/24 11:14 Pulse Rate 100 H 06/21/24 11:14 Respiratory Rate 18 06/21/24 11:14 Blood Pressure 167/99 H 06/21/24 11:14 Pulse Oximetry 96 06/21/24 11:14 Oxygen Delivery Method Room Air 06/21/24 11:14 Course <Zarina Ríos PA-C - Last Filed: 06/21/24 17:12> Orders Ordered: Discontinued Medications Tetanus/Diphtheria Toxoids (Tetanus Diphtheria Toxoids 0.5 Ml Vial) 0.5 ml IM .ONCE ONE Stop: 06/21/24 11:37 Last Admin: 06/21/24 12:18 Dose: 0.5 ml Documented By: RLS Vital Signs Vital signs: Vital Signs - 8 hr 06/21/24 11:14 Temperature 97.5 F L Pulse Rate 100 H Respiratory Rate 18 Blood Pressure 167/99 H Pulse Oximetry 96 Oxygen Delivery Method Room Air <Jeimy Christiansen DO - Last Filed: 06/22/24 09:29> Orders Ordered: Discontinued Medications Tetanus/Diphtheria Toxoids (Tetanus Diphtheria Toxoids 0.5 Ml Vial) 0.5 ml IM .ONCE ONE Stop: 06/21/24 11:37 Last Admin: 06/21/24 12:18 Dose: 0.5 ml Documented By: RLS Vital Signs Vital signs: Vital Signs - 8 hr 06/21/24 11:14 Temperature 97.5 F L Pulse Rate 100 H Respiratory Rate 18 Blood Pressure 167/99 H Pulse Oximetry 96 Oxygen Delivery Method Room Air MDM - Animal Bite <Zarina Ríos PA-C - Last Filed: 06/21/24 17:12> Differential Diagnosis Differential diagnosis: Likely bite by animal and dog bite Medical Records Attestation: I reviewed the patient's medical records. [facility] Narrative Medical decision making narrative: This is a generally healthy 69-year-old woman presenting with concern for a dog bite to her right leg sustained this morning less than 2 hours before arrival. Range of motion is intact. This appears to be relatively superficial multiple scrapes and broken skin no definite deep puncture wound. Patient's wound was cleansed with Hibiclens and warm water in the ER, and bandaged, also wrapped with a Jarred wrap for compression and comfort the dog that bit her was fully vaccinated and known to her (neighbor's dog). She received an updated TD shot IM, and also a prescription for Augmentin for 7 days for prophylaxis against infection. Return precautions provided, follow-up plan discussed, all questions answered. Discharge Plan Departure Patient Disposition: Home Clinical Impression: Dog bite of calf Qualifiers: Encounter type: initial encounter Laterality: right Qualified Code(s): S81.851A - Open bite, right lower leg, initial encounter Instructions: DI for Dog Bite Activity Restrictions/Additional Instructions: *You have been diagnosed with [dog bite] *What to do: *Please continue to take your regular medications as directed. [ 1] New medication prescriptions sent to your pharmacy: [Augmentin] [ ] New medication written as a paper prescription [ ] No new medications given *Please follow up with your primary care provider in 2-3 days, call for an appointment. Let them know you were seen in the Emergency Department and that we ask that you be seen in follow up. We will electronically transmit a record of today's note if your PCP is in our system. We cleansed her wound today from the dog bite you sustained this morning and updated your tetanus shot, I also sent in a prescription for 7 days of Augmentin as prophylaxis against infection. Please take all of this as prescribed. As we discussed I recommend yogurt [place] or probiotics while you are taking this antibiotic. You can follow up with your primary care if needed. If you are concerned for infection despite the antibiotics please make sure you seek re-evaluation. *If you do not have a primary care provider please contact the [facility] Resource line at [phone]. They will ask some questions about your medical history and help get you set up with a doctor in the community. *Return to Emergency Department if you should have any new, worsening or concerning symptoms, such as [fever greater than 101 F, shaking chills, worsening pain, persistent vomiting or other bothersome symptoms] Prescriptions: New amoxicillin-pot clavulanate 875-125 mg tablet 1 tab PO Q12H 7 Days Qty: 14 0RF No Action cholecalciferol (vitamin D3) 125 mcg (5,000 unit) capsule 125 mcg PO DAILY valacyclovir [Valtrex] 1 gram tablet 1,000 mg PO BID PRN (Reason: cold sores) Qty: 4 5RF Rx Instructions: for 1 day rosuvastatin [Crestor] 10 mg tablet 10 mg PO DAILY Qty: 90 3RF losartan 50 mg tablet 50 mg PO DAILY Qty: 90 3RF aspirin 81 mg tablet,chewable 81 mg PO DAILY Qty: 14 0RF Referrals: Iker Jules DO [Primary Care Provider] - Stand Alone Forms: Patient Portal/API/Survey ED Sign-out <Jeimy Christiansen DO - Last Filed: 06/22/24 09:29> Cosign ED Attending Cosarchanaature Attestation: I was immediately available in the department for consultation.
[2024-06-21] MEDS: TETANUS DIPHTHERIA TOXOIDS 0.5 ML VIAL IM (12:18)
--- NOTE | 2024-06-21 12:28 | PC.NURSE ---
wound cleansing and bandage done by TONYA Srinivasan.
== END 2024-06-21 12:46 | disposition home or self-care (01) ==
PROVIDERS: Emergency Provider Student in an Organized Health Care Education/Training Program; PCP Family Medicine
DX: S81.851A Open bite, right lower leg, initial encounter (principal); W54.0XXA Bitten by dog, initial encounter; Z23 Encounter for immunization
CPT/HCPCS: 90471; 90714; 99283

== ENCOUNTER → 2024-06-25 10:04 | Outpatient (CLI) | payer MEDICARE, OTHER, SELFPAY ==
[2024-06-25 11:01] LABS: Hemoglobin A1C% w Est Avg Glu 5.5 % (4.0-6.0)
[2024-06-25 11:14] LABS: Alanine Aminotransferase 15 IU/L (<35); Albumin Globulin Ratio 1.7 (1.0-2.8); Alkaline Phosphatase 44 U/L (38-126); Aspartate Aminotransferase 26 IU/L (14-36); Bilirubin Total 0.8 mg/dL (0.2-1.3); Blood Urea Nitrogen 20 mg/dL (7-17); Calcium 9.2 mg/dL (8.4-10.2); Carbon Dioxide 29 mmol/L (22-32); Chloride 104 mmol/L (98-107); Cholesterol 147 mg/dL (140-199); Estimated Glomerular Filt Rate > 60 mL/min (>60); Globulin 2.3 g/dL (1.7-4.1); Glucose 91 mg/dL (80-110); HDL Cholesterol 62 mg/dL (40-60); HEMOLYSIS < 15 (0-50); LDL Cholesterol Calculated 72 mg/dL (<100); Potassium 4.3 mmol/L (3.4-5.1); Sodium 139 mmol/L (137-145); Total Protein 6.3 g/dL (6.3-8.2); Triglycerides 65 mg/dL (35-150)
== END ==
PROVIDERS: PCP Family Medicine; Referring Provider Family Medicine; Visit Provider Family Medicine
DX: Z00.00 Encounter for general adult medical examination without abnormal findings (principal); R73.01 Impaired fasting glucose; I10 Essential (primary) hypertension; E78.2 Mixed hyperlipidemia
CPT/HCPCS: 36415; 80053; 80061; 83036

== ENCOUNTER 2024-07-02 18:29 | Emergency (ER) | payer MEDICARE, OTHER, SELFPAY ==
[2024-07-02 18:31] VITALS: BP 176/92; PULSE 73; RESP 17; O2SAT 98; BMI 29.9
--- NOTE | 2024-07-02 20:24 | ED.ANIMALBIT ---
HPI - Animal Bite General Chief Complaint: Animal Bite Stated Complaint: dog bite x1 wk now infected Time Seen by Provider: 07/02/24 20:24 Source: patient Mode of arrival: Ambulatory History of Present Illness HPI narrative: 69-year-old female with past medical history of hyperlipidemia hypertension comes into the ED from home for evaluation of a dog bite. Patient states that she was bitten by a dog on 06/21/2024 to her right lower leg, states she was seen here had it cleaned and was given Augmentin for a week, she states that she just finished the antibiotic last Sunday stated that it looked better but then awoke today and it looked more swollen and red again. Patient states that the dog was fully vaccinated, patient was updated on tetanus prior to discharge, Related Data Home Medications Medication Instructions Recorded Confirmed cholecalciferol (vitamin D3) 125 125 mcg PO DAILY 06/16/20 07/02/24 mcg (5,000 unit) capsule Previous Rx's Medication Instructions Recorded valacyclovir 1 gram tablet 1,000 mg PO BID PRN cold sores #4 12/20/22 (Valtrex) tabs losartan 50 mg tablet 50 mg PO DAILY blood pressure #90 06/25/24 tabs rosuvastatin 10 mg tablet (Crestor) 10 mg PO DAILY cholesterol #90 tabs 06/25/24 clindamycin HCl 150 mg capsule 450 mg (3 x 150 mg) PO TID 1 week 07/02/24 #63 caps doxycycline hyclate 100 mg capsule 100 mg PO BID 1 week #14 caps 07/02/24 Allergies Allergy/AdvReac Type Severity Reaction Status Date / Time bee venom protein (honey bee) AdvReac Intermediate SWELLING Verified 07/02/24 18:37 Review of Systems Review of Systems Narrative: General: Denies fever, chills, weight loss HEENT: Denies headache, eye drainage, eye irritation, head trauma, sore throat, voice change Cardiovascular: Denies any chest pain, palpitations, tachycardia Respiratory: Denies any shortness of breath, cough, wheeze, stridor GI/: Denies any abdominal pain, nausea, vomiting, diarrhea, bright red blood per rectum, melanotic stools, urinary frequency, urinary retention, dysuria, hematuria MSK: Denies any joint pain, muscle pains, swelling Skin: Swelling/wound to the right leg after dog bite Denies any rashes, lesions, discoloration Neuro: Denies any headache, lightheadedness, dizziness, fainting, weakness Psych: Denies SI/HI Patient History Medical History Encounter for subsequent annual wellness visit (AWV) in Medicare patient Low ferritin IFG (impaired fasting glucose) Has end of life care plan Low hemoglobin and low hematocrit Benign essential HTN UTI (urinary tract infection) Asthma Mixed hyperlipidemia (01/2020) Vision disorder Knee pain (~2018) Mumps Measles Chicken pox Anemia (~2002) Heavy menstrual period (~2002) Fibroids (~2002) Surgical History Anesthesia Status post hysterectomy (~2003) Family History Brother Age: 64 Diabetes mellitus Hypertension Mental health problem Morbid obesity Father Diabetes mellitus Heart disease Hypertension High cholesterol Mother Cancer Hypertension Hyperlipidemia Grandfather Cancer Heavy smoker Grandfather Stroke Grandmother No problems noted. Grandmother No problems noted. Social History household members: none Smoking Status: Never smoker second hand exposure: No alcohol intake: current substance use type: does not use Smoking Status: Never smoker alcohol intake frequency: a few times a month Exam Narrative Exam Narrative: General: Cooperative, well-developed, not in acute distress HEENT: Normocephalic, atraumatic, PERRLA, normal sclera, eyelids normal Neck: Active full range of motion, atraumatic Chest: Normal to inspection, negative crepitus, no overlying erythema ecchymosis Respiratory: Normal respiratory effort, not in acute respiratory distress, clear to auscultation bilaterally negative cough, wheeze, tachypnea, rhonchi, rales Cardiology: Regular rate rhythm negative gallop, murmur, rubs GI/: No tenderness to palpation, soft, non rigid, normal to inspection, exam deferred MSK: Full active range of motion in all 4 extremities, atraumatic, no tenderness to palpation of any bony prominences Skin: 3 x 3 cm fluctuant mass noted to the anterior lateral aspect of the right leg, neurovascularly intact no crepitus noted bedside ultrasound performed showed fluid with cobblestoning of surrounding skin Neuro: Alert awake oriented x3, moves all 4 extremities spontaneously, cranial nerves intact, able to answer all questions appropriately follows commands appropriately Psych: Cooperative, negative suicidal or homicidal ideations Initial Vital Signs Initial Vital Signs: Vital Signs Pulse Rate 73 07/02/24 18:31 Respiratory Rate 17 07/02/24 18:31 Blood Pressure 176/92 H 07/02/24 18:31 Pulse Oximetry 98 07/02/24 18:31 Oxygen Delivery Method Room Air 07/02/24 18:31 Procedures Abscess I/D I&D #1: Time of procedure: 20:44 Site: lower extremity Side (if applicable): right Sedation/analgesia: none Local Anesthetic: lidocaine 1% Amount of anesthesia used (mL): 10 Technique: incised with #11 blade Amount of fluid expressed (mL): 3 Irrigation: No Packing used?: iodoform Course Vital Signs Vital signs: Vital Signs - 8 hr 07/02/24 18:31 Pulse Rate 73 Respiratory Rate 17 Blood Pressure 176/92 H Pulse Oximetry 98 Oxygen Delivery Method Room Air MDM - Animal Bite Differential Diagnosis Differential diagnosis: Likely bite by animal (Cellulitis, abscess) MDM Narrative Medical decision making narrative: 69-year-old female who presents for recurrent swelling pain to the right lower extremity, states that she was seen here previously after being bit by a neighbor's dog who is vaccines are up-to-date, patient also had her tetanus vaccine updated at that time. She states that she completed her course of Augmentin last Sunday everything was fine but states that today she woke up noticed it more red slightly more painful, on exam no crepitus neurovascularly intact on exam patient with 3 x 3 cm fluctuant mass to the anterior lateral lower leg bedside ultrasound did show fluid, therefore did perform bedside incision and drainage, patient tolerated this well, serosanguineous drainage was released, did place packing, patient will be started on clindamycin and doxycycline and instructed to follow up with the primary care in outpatient setting, she was given strict return precautions she verbalized understanding of this and agrees to being discharged home with outpatient follow up Discharge Plan Departure Patient Disposition: Home Clinical Impression: Dog bite, Abscess, Cellulitis Instructions: DI for Incision and Drainage, DI for Dog Bite Activity Restrictions/Additional Instructions: Please follow up with your primary care doctor in outpatient setting Please read the discharge instructions sheet carefully and bring all papers to all doctor follow-up visits, as it may contain information that your doctor may want to see. Disease processes change and evolve, if your symptoms worsen or if you develop any new symptoms that are concerning to you please return for evaluation. Your evaluation today does not show any evidence of any life-threatening/serious illnesses requiring admission to the hospital or surgery. Please follow-up with your doctor for re-evaluation in approximately 1 day. Seek immediate medical attention for any worrisome symptoms. *If you do not have a primary care provider please contact the [facility] Resource line at [phone]. They will ask some questions about your medical history and help get you set up with a doctor in the community. Prescriptions: New clindamycin HCl 150 mg capsule 450 mg PO TID 7 Days Qty: 63 0RF doxycycline hyclate 100 mg capsule 100 mg PO BID 7 Days Qty: 14 0RF No Action cholecalciferol (vitamin D3) 125 mcg (5,000 unit) capsule 125 mcg PO DAILY valacyclovir [Valtrex] 1 gram tablet 1,000 mg PO BID PRN (Reason: cold sores) Qty: 4 5RF Rx Instructions: for 1 day rosuvastatin [Crestor] 10 mg tablet 10 mg PO DAILY Qty: 90 3RF losartan 50 mg tablet 50 mg PO DAILY Qty: 90 3RF Referrals: Iker Juels DO [Primary Care Provider] - Stand Alone Forms: Patient Portal/API/Survey
[2024-07-02] MEDS: CLINDAMYCIN 150 MG CAPSULE 450 MG PO (20:54)
[2024-07-02] MEDS: DOXYCYCLINE HYCLATE 100 MG TABLET PO (20:54)
[2024-07-02 21:01] VITALS: BP 164/90; PULSE 76; RESP 18; O2SAT 97
== END 2024-07-02 21:01 | disposition home or self-care (01) ==
PROVIDERS: Emergency Provider Student in an Organized Health Care Education/Training Program; PCP Family Medicine
DX: L02.415 Cutaneous abscess of right lower limb (principal); L03.115 Cellulitis of right lower limb; W54.0XXA Bitten by dog, initial encounter
CPT/HCPCS: 10060; 99283

== ENCOUNTER → 2024-07-08 10:16 | Outpatient (CLI) | payer MEDICARE, OTHER, SELFPAY | LOC: LAB 10:18 | PROVIDERS: PCP Family Medicine; Visit Provider Family Medicine | DX: L02.91 Cutaneous abscess, unspecified (principal); W54.0XXA Bitten by dog, initial encounter | CPT/HCPCS: 87070; 87075; 87205 ==

== ENCOUNTER → 2024-07-08 10:29 | Outpatient (CLI) | payer MEDICARE, OTHER, SELFPAY ==
--- NOTE | 2024-07-08 10:30 | DI.US.S_ITS ---
PROCEDURE: US EXTREMITY NONVASC LOWER RT INDICATIONS: RIGHT LATERAL HAIRSTON ABSESS POST DOG BITE TECHNIQUE: Real-time scanning was performed of the right lower leg, with image documentation. COMPARISON: None. FINDINGS: Focused ultrasound examination of right lateral lower leg at the area of concern lateral to the tibial shaft shows 3.8 x 0.8 x 3.4 cm irregularly-shaped complex fluid collection and show no internal vascularity. There is a 1 cm linear thin echogenic structure within this collection and show no internal vascularity. IMPRESSION: Given patient's history, finding is concerning for developing abscess collection in right lower leg with possible internal linear foreign body, suggest clinical correlation. Dictated by: Kenji Bains M.D. on 07/08/2024 at 11:04 Approved by: Kenji Bains M.D. on 07/08/2024 at 11:07
== END ==
PROVIDERS: PCP Family Medicine; Referring Provider Family Medicine; Visit Provider Family Medicine
DX: L02.91 Cutaneous abscess, unspecified (principal); W54.0XXA Bitten by dog, initial encounter
CPT/HCPCS: 76882; 87070; 87075; 87205

== ENCOUNTER → 2024-07-16 10:07 | Outpatient (CLI) | payer MEDICARE, OTHER, SELFPAY | PROVIDERS: PCP Family Medicine; Referring Provider Family Medicine; Visit Provider Surgery | DX: S81.801A Unspecified open wound, right lower leg, initial encounter (principal); W54.0XXA Bitten by dog, initial encounter | CPT/HCPCS: 11042; 99203; 99213 ==

== ENCOUNTER → 2024-07-22 08:48 | Outpatient (CLI) | payer MEDICARE, OTHER, SELFPAY | PROVIDERS: PCP Family Medicine; Referring Provider Surgery; Visit Provider Surgery | DX: S81.851A Open bite, right lower leg, initial encounter (principal); W54.0XXA Bitten by dog, initial encounter; I10 Essential (primary) hypertension; D64.9 Anemia, unspecified | CPT/HCPCS: 11042; 97607 ==

== ENCOUNTER → 2024-07-25 08:39 | Outpatient (CLI) | payer MEDICARE, OTHER, SELFPAY | LOC: WC 08:41 | PROVIDERS: PCP Family Medicine; Referring Provider Family Medicine; Visit Provider Surgery | DX: S81.851A Open bite, right lower leg, initial encounter (principal); M79.661 Pain in right lower leg; W54.0XXA Bitten by dog, initial encounter | CPT/HCPCS: 97607 ==

== ENCOUNTER → 2024-07-29 15:37 | Outpatient (CLI) | payer MEDICARE, OTHER, SELFPAY | LOC: WC 15:38 | PROVIDERS: PCP Family Medicine; Referring Provider Family Medicine; Visit Provider Surgery | DX: S81.801A Unspecified open wound, right lower leg, initial encounter (principal); W54.0XXA Bitten by dog, initial encounter | CPT/HCPCS: 11042 ==

== ENCOUNTER → 2024-08-05 08:58 | Outpatient (CLI) | payer MEDICARE, OTHER, SELFPAY | LOC: WC 09:00 | PROVIDERS: PCP Family Medicine; Referring Provider Family Medicine; Visit Provider Surgery | DX: S81.801A Unspecified open wound, right lower leg, initial encounter (principal); W54.0XXA Bitten by dog, initial encounter | CPT/HCPCS: 11042; 97607 ==

== ENCOUNTER → 2024-08-12 09:00 | Outpatient (CLI) | payer MEDICARE, OTHER, SELFPAY | PROVIDERS: PCP Family Medicine; Referring Provider Family Medicine; Visit Provider Surgery | DX: S81.851A Open bite, right lower leg, initial encounter (principal); W54.0XXA Bitten by dog, initial encounter; R60.0 Localized edema | CPT/HCPCS: 11042; 99213 ==

== ENCOUNTER → 2024-08-19 10:47 | Outpatient (CLI) | payer MEDICARE, OTHER, SELFPAY | PROVIDERS: PCP Family Medicine; Referring Provider Family Medicine; Visit Provider Surgery | DX: S81.801A Unspecified open wound, right lower leg, initial encounter (principal); W54.0XXA Bitten by dog, initial encounter | CPT/HCPCS: 11042 ==

== ENCOUNTER → 2024-08-26 09:32 | Outpatient (CLI) | payer MEDICARE, OTHER, SELFPAY | LOC: WC 09:37 | PROVIDERS: PCP Family Medicine; Referring Provider Family Medicine; Visit Provider Surgery | DX: S81.801A Unspecified open wound, right lower leg, initial encounter (principal); W54.0XXA Bitten by dog, initial encounter | CPT/HCPCS: 11042 ==

== ENCOUNTER → 2024-09-02 09:42 | Outpatient (CLI) | payer MEDICARE, OTHER, SELFPAY | LOC: WC 09:44 | PROVIDERS: PCP Family Medicine; Referring Provider Family Medicine; Visit Provider Surgery | DX: S81.801D Unspecified open wound, right lower leg, subsequent encounter (principal); W54.0XXD Bitten by dog, subsequent encounter | CPT/HCPCS: 99212 ==